=== PATIENT | female | born 1970 | race Caucasian/White ===

== ENCOUNTER 2020-08-30 08:48 | Outpatient (REF) | payer OTHER, SELFPAY ==
[2020-08-30 09:34] LABS: MANUAL DIFF FLAG NO
[2020-08-30 09:43] LABS: Basophils Absolute Auto 0.1 X10*3/uL (0.0-0.2); Basophils Percent Auto 1.1 % (0-2); Eosinophils Absolute Auto 0.1 X10*3/uL (0.0-0.4); Eosinophils Percent Auto 1.1 % (0-4); Hematocrit 44.7 % (37-47); Imm Gran Abs Auto 0.03 X10*3/uL (0.00-0.03); Imm Gran Pct Auto 0.3 % (0.0-0.4); Lymphocytes Absolute Auto 1.9 X10*3/uL (1.2-4.9); Lymphocytes Percent Auto 20.6 % (20-40); Mean Corpuscular HGB Conc 33.6 g/dl (31.0-35.0); Mean Corpuscular Hemoglobin 31.9 pg (27.0-33.0); Mean Corpuscular Volume 95.1 fL (80-98); Mean Platelet Volume 9.9 fL (9.4-12.3); Monocytes Absolute Auto 0.8 X10*3/uL (0.1-1.2); Monocytes Percent Auto 8.2 % (2-11); Neutrophils Absolute Auto 6.4 X10*3/uL (2.0-8.3); Neutrophils Percent Auto 68.7 % (45-73); Platelet Count 360 X10*3/uL (160-400); Red Cell Distribution Width 13.3 % (11.0-16.0); White Blood Count 9.4 X10*3/uL (4.8-10.8)
[2020-08-30 10:09] LABS: Alanine Aminotransferase 21 U/L (0-31); Albumin Level 4.3 g/dL (3.5-5.0); Alkaline Phosphatase 51 U/L (39-117); Anion Gap 11 (12-20); Aspartate Amino Transferase 21 U/L (5-31); Bilirubin Total 1.9 mg/dL (0.0-1.0); Blood Urea Nitrogen 16 mg/dL (9-16); Carbon Dioxide 27 mmol/L (22-29); Chloride 106 mmol/L (96-108); Cholesterol 184 mg/dL; Estimated Glomerular Filt Rate > 60; Gamma Glutamyl Transpeptidase 28 U/L (7-33); Glucose Fasting 96 mg/dL (60-99); HDL Cholesterol 72 mg/dL; LDL Cholesterol Calculated 103 mg/dl; Potassium 4.6 mmol/L (3.3-5.1); Sodium 139 mmol/L (135-145); Total Protein 6.9 g/dL (6.5-8.0); Triglycerides 46 mg/dL
[2020-08-30 10:29] LABS: TSH reflex Free T4 0.72 uIU/mL (0.32-4.0)
[2020-08-30 10:37] LABS: Glucose Urine UA NEG (NEG); Leukocyte Esterase Urine NEG (NEG); Nitrite Urine NEG (NEG); Urine Blood 3+ (NEG); Urine Ketones 5 MG/DL (NEG); Urine Protein NEG (NEG-TRACE)
[2020-08-30 10:41] LABS: Appearance Urine HAZY; Color Urine YELLOW
[2020-08-30 11:09] LABS: WBC Urine 0 /HPF (0-4)
[2020-08-30 11:10] LABS: Mucus Urine 2+ /LPF; Squamous Epithelial Cell Urine 1+ /LPF
== END 2020-08-30 08:49 | disposition home or self-care (01) ==
LOC: HO.LAB 08:48
PROVIDERS: PCP Internal Medicine; Visit Provider Internal Medicine
DX: Z00.00 Encounter for general adult medical examination without abnormal findings (principal); I47.1 Supraventricular tachycardia; E80.6 Other disorders of bilirubin metabolism; E66.3 Overweight; J45.20 Mild intermittent asthma, uncomplicated
CPT/HCPCS: 36415; 80053; 80061; 81001; 82977; 84443; 85025

== ENCOUNTER → 2021-01-21 15:16 | Outpatient (BNVA) | payer OTHER, SELFPAY | PROVIDERS: PCP Internal Medicine; Visit Provider Hospitalist ==

== ENCOUNTER 2021-04-07 08:39 | Outpatient (REF) | payer OTHER, SELFPAY ==
--- NOTE | ~2021-04-07 | US_ITS ---
EXAMINATION: US RETROPERITONEAL LIMITED (RENAL ONLY) CLINICAL INFORMATION: Cyst of kidney, acquired. COMPARISON: Renal ultrasound 12/31/2019 and 01/08/2019. MRI abdomen 06/02/2013. CT abdomen 04/18/2013. TECHNIQUE: Real-time imaging of the kidneys. FINDINGS: RIGHT KIDNEY: 10.8 x 4.7 x 5.5 cm (SAG x AP x TRV). The kidney is normal in size, contour, and echogenicity. Renal cortical thickness is normal. No focal parenchymal lesions. Previously seen simple cyst not appreciated on the current examination. Lower pole probable stone measuring 0.2 cm. Mild renal pelvic fullness, unchanged. No significant hydronephrosis. LEFT KIDNEY: 11.5 x 6.0 x 5.3 cm (SAG x AP x TRV). The kidney is normal in size, contour, and echogenicity. Renal cortical thickness is normal. No calculi or focal parenchymal lesions. No hydronephrosis. US/US renal BI IMPRESSION: 1. Previously CT seen right renal cyst not identified on the current examination. No new renal parenchymal lesion. 2. Probable right renal 0.2 cm lower pole stone. Mild pelvic fullness which is unchanged. No significant hydronephrosis.
== END 2021-04-07 08:40 | disposition home or self-care (01) ==
LOC: HO.HMGCX 08:39
PROVIDERS: PCP Internal Medicine; Visit Provider Urology
DX: N28.1 Cyst of kidney, acquired (principal)
CPT/HCPCS: 76775

== ENCOUNTER 2021-05-09 10:18 | Outpatient (REF) | payer OTHER, SELFPAY ==
[2021-05-09 11:07] LABS: COVID-19 Test Negative (Negative)
== END 2021-05-09 10:19 | disposition home or self-care (01) ==
LOC: HO.LAB 10:18
PROVIDERS: PCP Internal Medicine; Visit Provider Internal Medicine
DX: Z20.822 Contact with and (suspected) exposure to COVID-19 (principal)
CPT/HCPCS: 36415; 87635; C9803

== ENCOUNTER 2022-03-22 13:35 | Outpatient (REF) | payer OTHER, SELFPAY ==
[2022-03-22 13:59] LABS: MANUAL DIFF FLAG NO
[2022-03-22 14:23] LABS: Basophils Absolute Auto 0.1 X10*3/uL (0.0-0.2); Basophils Percent Auto 1.9 % (0-2); Eosinophils Absolute Auto 0.1 X10*3/uL (0.0-0.4); Eosinophils Percent Auto 1.5 % (0-4); Hematocrit 45.2 % (37.0-47.0); Hemoglobin 14.9 g/dl (12.0-16.0); Imm Gran Abs Auto 0.02 X10*3/uL (0.00-0.03); Imm Gran Pct Auto 0.3 % (0.0-0.4); Lymphocytes Absolute Auto 2.4 X10*3/uL (1.2-4.9); Lymphocytes Percent Auto 38.7 % (20-40); Mean Corpuscular Hemoglobin 31.2 pg (27.0-33.0); Mean Corpuscular Volume 94.8 fL (80.0-98.0); Mean Platelet Volume 9.8 fL (9.4-12.3); Monocytes Absolute Auto 0.6 X10*3/uL (0.1-1.2); Monocytes Percent Auto 9.8 % (2-11); Neutrophils Percent Auto 47.8 % (45-73); Platelet Count 371 X10*3/uL (160-400); Red Blood Count 4.77 X10*6/uL (4.20-5.50); Red Cell Distribution Width 13.2 % (11.0-16.0); White Blood Count 6.2 X10*3/uL (4.8-10.8)
[2022-03-22 14:30] LABS: Appearance Urine Clear; Color Urine Yellow; Glucose Urine UA Negative (Negative); Leukocyte Esterase Urine Trace (Negative); Nitrite Urine Negative (Negative); UMIC TRIGGER UACC YES; Urine Blood Trace (Negative); Urine Ketones Negative (Negative); Urine Protein Negative (Neg-Trace)
[2022-03-22 14:33] LABS: Bacteria Urine 1+ (None Seen); Hyaline Casts Urine 0-2 /LPF (0-2); WBC Urine 0-5 /HPF (0-5)
[2022-03-22 15:06] LABS: Anion Gap 15 (12-20); Blood Urea Nitrogen 11 mg/dL (9-16); Carbon Dioxide 27 mmol/L (22-29); Chloride 102 mmol/L (96-108); Estimated Glomerular Filt Rate > 60; Glucose Random 91 mg/dL (60-115); Magnesium 2.1 mg/dL (1.6-2.6); Potassium 4.1 mmol/L (3.3-5.1); Sodium 140 mmol/L (135-145)
[2022-03-22 15:17] LABS: Vitamin D 25-OH Total 26.8 ng/mL (>30)
[2022-03-24 08:27] LABS: Lyme Abs Screen <0.90 index
== END 2022-03-22 13:36 | disposition home or self-care (01) ==
LOC: HO.LAB 13:35
PROVIDERS: PCP Internal Medicine; Referring Provider Internal Medicine; Visit Provider Internal Medicine
DX: Z00.00 Encounter for general adult medical examination without abnormal findings (principal); T14.8XXA Other injury of unspecified body region, initial encounter; W57.XXXA Bitten or stung by nonvenomous insect and other nonvenomous arthropods, initial encounter; I49.1 Atrial premature depolarization; R00.2 Palpitations; E78.00 Pure hypercholesterolemia, unspecified; E55.9 Vitamin D deficiency, unspecified
CPT/HCPCS: 36415; 80048; 81001; 82306; 83735; 84443; 85025; 86617; 86618

== ENCOUNTER 2022-03-30 09:07 | Outpatient (REF) | payer OTHER, SELFPAY ==
[2022-03-30 11:21] LABS: Alanine Aminotransferase 24 U/L (0-31); Albumin Level 4.4 g/dL (3.5-5.0); Alkaline Phosphatase 56 U/L (39-117); Anion Gap 11 (12-20); Aspartate Amino Transferase 22 U/L (5-31); Bilirubin Total 1.5 mg/dL (0.0-1.0); Blood Urea Nitrogen 13 mg/dL (9-16); Calcium 9.9 mg/dL (8.4-10.2); Carbon Dioxide 29 mmol/L (22-29); Chloride 106 mmol/L (96-108); Cholesterol 190 mg/dL; Estimated Glomerular Filt Rate > 60; Glucose Fasting 99 mg/dL (60-99); HDL Cholesterol 72 mg/dL; LDL Cholesterol Calculated 110 mg/dl; Potassium 4.6 mmol/L (3.3-5.1); Sodium 141 mmol/L (135-145); Triglycerides 42 mg/dL
== END 2022-03-30 09:08 | disposition home or self-care (01) ==
LOC: HO.LAB 09:07
PROVIDERS: PCP Internal Medicine; Visit Provider Internal Medicine
DX: Z00.00 Encounter for general adult medical examination without abnormal findings (principal)
CPT/HCPCS: 36415; 80053; 80061

== ENCOUNTER 2022-05-12 09:30 | Outpatient (REF) | payer OTHER, SELFPAY ==
--- NOTE | ~2022-05-12 | US_ITS ---
EXAMINATION: US RETROPERITONEAL LIMITED (RENAL ONLY) CLINICAL INFORMATION: Urinary calculus, unspecified. COMPARISON: Renal ultrasound 04/07/2021 and 12/31/2019. MRI abdomen 06/02/2013. CT abdomen 04/18/2013. TECHNIQUE: Real-time imaging of the kidneys. FINDINGS: RIGHT KIDNEY: 10.5 x 4.3 x 6.5 cm (SAG x AP x TRV). The kidney is normal in size, contour, and echogenicity. Renal cortical thickness is normal. No renal calculi or hydronephrosis. At the interpolar aspect, a 6 x 4 x 7 mm of the complex cyst seen, with fine septation. This shows no mural nodularity or associated color Doppler flow. LEFT KIDNEY: 11.7 x 5.9 x 6.3 cm (SAG x AP x TRV). The kidney is normal in size, contour, and echogenicity. Renal cortical thickness is normal. No focal parenchymal lesions or hydronephrosis. At the interpolar aspect, a 3 mm nonobstructing calculus is seen, with twinkle artifact. US/US renal BI IMPRESSION: 1. A 3 mm nonobstructing left renal calculus is seen. No right renal calculus is seen. No hydronephrosis is noted bilaterally. 2. A 7 mm in maximal diameter mildly complex mid right renal cyst is seen, with solitary fine septation. This is minimally changed from the ultrasound examination of 12/31/2019, at which time it showed a simple appearance. If relevant to patient management, this can be further evaluated with CT or MRI (renal mass protocol).
== END 2022-05-12 09:31 | disposition home or self-care (01) ==
LOC: HO.US 09:30
DX: N20.9 Urinary calculus, unspecified (principal)
CPT/HCPCS: 76775

== ENCOUNTER 2023-04-16 09:00 | Outpatient (AMB) | payer OTHER, SELFPAY ==
[2023-04-16 09:09] VITALS: BP 112/80; PULSE 81; O2SAT 98; BMI 27.8
--- NOTE | 2023-04-16 09:09 | A.OFFPC_ITS ---
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: No Accompanied by: Self / Same As Patient Allergies No Known Allergies [No Known Allergies*] Allergy (Verified 04/16/23 09:22) Medication List - Last Reconciled 04/16/23 by Martinez Patiño MD No Known Home Meds Tobacco use date assessed: 04/16/23 Dental Screening Dental Screen Date: 04/16/23 Did you have a dental visit in the last 12 months?: Yes Did you have a dental problem in the last 6 months where you did not have access to dental care?: No Was dental information given to patient?: Patient has dentist HPI PE HPI Details Patient comes in today for her annual physical examination States that she feels okay She denies any headaches or dizziness Denies any chest pains, no SOB No nausea/vomiting, no abdominal pain No change in bowel habits noted Denies any acute urinary symptoms Had her screening colonoscopy done in 04/2019 - recommended to repeat colonoscopy in 5 years (04/2024) Her annual mammogram was last done last month at [facility] (02/2023) She has her records management analyst exam and pap smear scheduled for next month She was also seen by cardiology for follow up a few weeks ago - she continues to feel well and has been asymptomatic since her cardiac ablation for her SVTs back in 06/2021 Would like to get tested for Lyme disease again in addition to her other routine labs as she is out in the [facility] often She was not able to get her previously ordered labs (from last year) done yet - states that she will go and get them done as soon as possible Would also like to get her flu shot today [facility] Medical History (Updated 04/16/23 @ 09:48 by Martinez Patiño MD) Urolithiasis Hyperbilirubinemia Overweight (BMI 25.0-29.9) SVT (supraventricular tachycardia) Asthma Surgical History (Updated 04/16/23 @ 09:48 by Martinez Patiño MD) History of colonoscopy (~05/16/19) History of cardiac radiofrequency ablation (~06/2021) History of superficial keratectomy (~04/2017) 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 1. Little interest or pleasure in doing things: not at all 2. Feeling down, depressed, or hopeless: not at all 3. Trouble falling or staying asleep, or sleeping too much: not at all 4. Feeling tired or having little energy: not at all 5. Poor appetite or overeating: not at all 6. Feeling bad about yourself - or that you are a failure or have let yourself or your family down: not at all 7. Trouble concentrating on things, such as reading the newspaper or watching television: not at all 8. Moving or speaking so slowly that other people could have noticed. Or the opposite - being so fidgety or restless that you have been moving around a lot more than usual: not at all 9. Thoughts that you would be better off or of hurting yourself in some way: not at all Total score: 0 Depression Screening Interpretation: Negative Depression Screening Done: Yes 66502 - PHQ-9 Billing: Yes Source: Developed by Drs. Santosh Colunga, Kya Martínez, Dario Barrios and colleagues, with an educational alyssa from Interview. Thrive Questionnaire Date Thrive assessed: 04/16/23 I am a: Patient What is your living situation today?: I have a steady place to live Within the past 12 months, did the food you bought not last and you didn't have the money to get more?: Never true Within the past 12 months, did you worry whether your food would run out before you got money to buy more?: Never true Do you have trouble paying for medicines?: No Do you have trouble getting transportation to medical appointments?: No Do you have trouble paying your heating and electricity bill?: No Do you have trouble taking care of your child, family member or friend?: No Do you have trouble with day-to-day activities such as bathing, preparing meals, shopping, managing finances, etc.?: No Are you currently unemployed and looking for a job?: No Are you interested in more education?: No Please select the resources that you would like help with: None Currently or been in a relationship where the following occur: no concerns reported AUDIT C Alcohol Use Questionnaire (AUDIT-C) 1. How often do you have a drink containing alcohol?: 4 or more times a week 2. How many drinks containing alcohol do you have on a typical day when you are drinking?: 1 or 2 3. How often do you have six or more drinks on one occasion?: Never Total Score: 4 Score Reviewed/Action Taken: Yes DAVION-7 AMB Questionnaire DAVION-7 Date DAVION - 7 assessed: 04/16/23 Feeling nervous, anxious, or on edge: 0 = Not at all Not being able to stop or control worryin = Not at all Worrying too much about different things: 0 = Not at all Trouble relaxin = Not at all Being so restless that it is hard to sit still: 0 = Not at all Becoming easily annoyed or irritable: 0 = Not at all Feeling afraid as if something awful might happen: 0 = Not at all Total DAVION-7 score (0-4 normal; 5-9 mild; 10-14 moderate; 15-21 severe): 0 Source: Developed by Drs. Santosh Colunga, Kya Martínez, Dario Barrios and colleagues, with an educational alyssa from Interview. Review of Systems Const Denies chills, Denies fatigue, Denies fever(s), Denies headache(s) and Denies malaise Eyes Denies blurry vision, Denies change in vision, Denies irritation and Denies i tchy eyes ENT Denies dysphagia, Denies dizziness, Denies otalgia, Denies headache(s), Denies nasal congestion, Denies neck pain, Denies odynophagia, Denies sinus pain and Denies sore throat Card Denies chest pain, Denies rapid heart rate, Denies irregular heart rhythm, Denies palpitations and Denies dyspnea Resp Denies chest congestion, Denies cough, Denies dyspnea and Denies wheezing GI Denies abdominal pain, Denies bloating, Denies constipation, Denies dysphagia, Denies heartburn, Denies diarrhea, Denies nausea, Denies odynophagia and Denies vomiting Denies hematuria, Denies urinary frequency, Denies dysuria, Denies urinary incontinence and Denies urinary urgency Musc Denies back pain, Denies arthralgias, Denies joint swelling, Denies muscle weakness and Denies neck pain Skin/Breast Denies breast pain, Denies breast mass, Denies change in pigmentation, Denies lesions, Denies rash and Denies unusual bruising Neuro Denies dizziness, Denies headache(s) and Denies paresthesias Psych Denies anxiety and Denies depression Endo Denies fatigue and Denies palpitations Kyle/Lymph Denies easy bruising Aller/Immun Denies itchy eyes and Denies wheezing Physical exam (Primary Care) Vital Signs: Oxygen Delivery Method Room Air 04/16/23 09:09 BMI result Body Mass Index 27.8 Tobacco/Smoking Status: Tobacco use Status Tobacco use date assessed 04/16/23 04/16/23 09:15 Patient Tobacco Use Status Former Tobacco user 04/16/23 09:10 PHQ-9: PHQ-9 Score PHQ-9: Total score 0 04/16/23 09:15 Depression Screening Interpretation: Negative Thrive Assessment: Date of Thrive Assessment Date Thrive assessed 04/16/23 04/16/23 09:15 Currently or been in a relationship where the following occur: no concerns reported Const General: no acute distress, alert and awake Orientation/consciousness: patient oriented x3 HENMT Head: Yes normocephalic and Yes atraumatic Ears: external ears normal, TM's normal bilaterally and EAC's normal General nose exam: No nasal discharge present Face and sinus: Yes normal facial exam and Yes sinuses nontender Teeth and gingiva: dentition normal Throat: Yes posterior oropharynx normal and Yes tonsils normal (no TP congestion) Eyes Eyelids: Yes eyelids normal Conjunctivae: conjunctivae normal Pupils: Equal, round and reactive pupils present EOM: EOMs intact bilaterally Neck Neck: Yes no lymphadenopathy and Yes supple Thyroid: Thyroid normal Resp Auscultation: clear to auscultation bilaterally, no rales and no wheezes Cardio Rate: regular rate Rhythm: regular rhythm Heart sounds: no murmurs GI Palpation (GI): Soft to palpation, nontender and No hepatosplenomegaly present Auscultation: normal bowel sounds General: Yes no CVA tenderness Back/Spine/Pelvis Back: no CVA tenderness Thoracic/Lumbar Spine: thoracic and lumbar spine normal to inspection Skin Lesions: no lesions Rashes: no rashes Neuro General: patient oriented x3, moves all extremities, no focal motor deficits and CN's II-XI intact bilaterally Cranial nerves: Yes Equal, round and reactive pupils present Cognition (Neuro): normal cognition Gait exam (Neuro): Normal gait present Extrem General: Yes no clubbing, cyanosis or edema Office Procedures Flu Questionnaire Does the patient have a severe egg allergy?: No Does the patient have severe life threatening allergies?: No Does the patient have a fever or illness today?: No Has the patient ever had Guillain-[place] Syndrome?: No Has the patient ever had any past reaction to a flu shot?: No Immunizations flu vacc [id number] 6mos up(PF) 60 mcg(15 mcgx4)/0.5 mL IM syringe Performing Provider: Martinez Patiño MD Performing Location: [facility] Administered by: Rachel Andrade on 04/16/23 09:22 Dose Route Admin Location Dispensed Lot Number Expiration Date NDC Rat Exterminator 0.5 mL IM Left Deltoid 0.5 mL [id number] 12/23/23 [id number] Phraxis VIS Given Date VIS Provided VIS Publication Date 04/16/23 Single Vaccine 21 Eligibility Eligibility Date Funding Source Not [facility] Eligible 04/16/23 Private Assessment and Plan Assessment & Plan (1) Annual physical exam: Code(s): Z00.00 - Encounter for general adult medical examination without abnormal findings Plan: Patient is instructed to go and get her labs done CYDNEY - reminded that they were previously ordered last year and orders are still active in her file Per request, will add Lyme disease testing to her orders Patient is up-to-date with her screening colonoscopy and mammogram; is scheduled for her annual pap smear and records management analyst exam next month (2) SVT (supraventricular tachycardia): Code(s): I47.1 - Supraventricular tachycardia Plan: S/P EPS and catheter ablation last year on 07/08/2021 at [facility] by Dr. Lao, with no recurrence of her arrhythmia since She was still experiencing occasional brief episodes of rapid heart rate sometime last year, which cardiology thought may be due to PACs but since the pathway was ablated, they cannot progress to SVTs; states that she's had no cardiac symptoms at all this year Follow up with cardiology as scheduled (3) Hyperbilirubinemia: Comment: Gilbert's syndrome Code(s): E80.6 - Other disorders of bilirubin metabolism Plan: Serum bilirubin level has been consistently elevated on her labs; patient remains asymptomatic Most likely has Gilbert's syndrome, which is benign and no intervention is needed Will continue to monitor her bilirubin level and LFTs regularly (4) Asthma: Code(s): J45.909 - Unspecified asthma, uncomplicated Qualifiers: Asthma severity: mild Asthma persistence: intermittent Asthma complication type: uncomplicated Qualified Code(s): J45.20 - Mild intermittent asthma, uncomplicated Plan: Stable/asymptomatic Follow-up with pulmonary as scheduled or as needed (5) Overweight (BMI 25.0-29.9): Code(s): E66.3 - Overweight Plan: Reinforced diet/exercise as tolerated/lose weight Plan Flu vaccine given today To return in 1 year for her next annual physical examination Orders: Orders Influenza [id number] Immunization Today Z23 - Encounter for immunization Complete Blood Count Auto Diff 365 Days E80.6 - Other disorders of bilirubin metabolism, I47.1 - Supraventricular tachycardia, Z00.00 - Encounter for general adult medical examination without abnormal findings Lipid Panel 365 Days E78.5 - Hyperlipidemia, unspecified, E80.6 - Other disorders of bilirubin metabolism, I47.1 - Supraventricular tachycardia, Z00.00 - Encounter for general adult medical examination without abnormal findings TSH reflex Free T4 365 Days E80.6 - Other disorders of bilirubin metabolism, I47.1 - Supraventricular tachycardia, Z00.00 - Encounter for general adult medical examination without abnormal findings Vitamin D 25-OH Total 365 Days E55.9 - Vitamin D deficiency, unspecified, Z00.00 - Encounter for general adult medical examination without abnormal findings Lyme IgG/IgM w/reflex to WB Today W57.XXXA - Bitten or stung by nonvenomous insect and other nonvenomous arthropods, initial encounter Comprehensive [place]. Panel Fast 365 Days E80.6 - Other disorders of bilirubin metabolism, I47.1 - Supraventricular tachycardia, Z00.00 - Encounter for general adult medical examination without abnormal findings UA CC w/rflx Micro + Cult 365 Days I47.1 - Supraventricular tachycardia, R30.0 - Dysuria, Z00.00 - Encounter for general adult medical examination without abnormal findings Coding Level of Care Code Est Pt Prev Care 40-64y(29198) Diagnoses Annual physical exam Z00.00 SVT (supraventricular tachycardia) I47.1 Hyperbilirubinemia E80.6 Mild intermittent asthma without complication J45.20 Asthma severity: mild Asthma persistence: intermittent Asthma complication type: uncomplicated Overweight (BMI 25.0-29.9) E66.3
== END 2023-04-16 09:43 | disposition home or self-care (01) ==
PROVIDERS: Visit Provider Internal Medicine
DX: Z00.00 Encounter for general adult medical examination without abnormal findings (principal); I47.1 Supraventricular tachycardia; E80.6 Other disorders of bilirubin metabolism; J45.20 Mild intermittent asthma, uncomplicated; E66.3 Overweight; Z23 Encounter for immunization
CPT/HCPCS: 90471; 90686; 99396

== ENCOUNTER 2023-06-04 16:40 | Outpatient (REF) | payer OTHER, SELFPAY ==
--- NOTE | ~2023-06-04 | US_ITS ---
EXAMINATION: US RETROPERITONEAL LIMITED (RENAL ONLY) CLINICAL INFORMATION: Renal calculus, renal cysts. COMPARISON: 05/12/2022 and 04/07/2021 renal ultrasounds. MRI abdomen 06/12/2013. CT abdomen 04/18/2013. TECHNIQUE: Real-time ultrasound imaging of the kidneys. Limited visualization due to bowel gas. FINDINGS: RIGHT KIDNEY: 10.0 x 4.6 x 6.4 cm (SAG x AP x TRV). No hydronephrosis. Right lower pole 0.4 cm calculus. Renal cortical thickness is normal. Limited visualization. LEFT KIDNEY: 11.6 x 6.0 x 5.5 cm (SAG x AP x TRV). No hydronephrosis. No renal calculi. Renal cortical thickness is normal. Limited visualization. US/US renal BI IMPRESSION: 1. Right renal lower pole 0.4 cm calculus. No hydronephrosis. 2. No left renal calculi. No hydronephrosis. 3. The 7 mm right renal complex cyst identified on ultrasound of 05/16/2022 is not appreciated on the current exam, possibly due to limited visualization. 4. CT scan could be considered for better visualization.
== END 2023-06-04 16:41 | disposition home or self-care (01) ==
LOC: HO.US 16:40
PROVIDERS: PCP Internal Medicine; Visit Provider Urology
DX: N20.9 Urinary calculus, unspecified (principal)
CPT/HCPCS: 76775

== ENCOUNTER 2023-06-28 08:36 | Outpatient (AMB) | payer OTHER, SELFPAY ==
--- NOTE | 2023-06-28 08:38 | MHC.OFFVIS ---
Intake Intake Visit Reasons: 1Y US(set) Intake Note: Patient is Present for Follow Up Ultrasound Urology Medication: None Antibiotic Allergies: None Blood Thinners: None Allergies No Known Allergies [No Known Allergies*] Allergy (Verified 06/28/23 08:43) Medication List - Last Reconciled 06/28/23 by Guillermo Greene MD No Known Home Meds HPI HPI Comments History of Present Illness Details Nicole is a pleasant female. She is a patient Dr. Patiño. 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) H/O section Social History Housing: House Alcohol intake: current Alcohol intake frequency: 3 or more drinks per day Patient Tobacco Use Status: Former Tobacco user Second Hand Smoke Exposure: Yes service: No Current occupational status: employed 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 Cognitive needs: No Hearing needs: No Vision needs: Yes Review of Systems Const Denies chills and Denies fever(s) Card Reports no additional complaints and Denies syncope Resp Denies cough GI Denies abdominal pain and Denies heartburn Reports as per HPI and Denies change in libido Neuro Denies syncope Psych Denies change in libido Endo Denies change in libido Physical Exam Const General: cooperative, healthy appearing, comfortable and no acute distress Orientation/consciousness: patient oriented x3 HEENT Face and sinus: Yes normal facial exam Mouth: moist mucous membranes Neck Neck: Yes normal visual inspection, Yes full ROM and Yes trachea midline Chest Chest palpation & inspection: normal inspection of the chest Resp Effort & Inspection: normal respiratory effort, able to speak in complete sentences and no respiratory distress GI Inspection: Yes normal to inspection Back/Spine/Pelvis Cervical Spine: normal cervical lordosis Thoracic/Lumbar Spine: thoracic and lumbar spine normal to inspection Skin General skin exam: no rashes or lesions noted Neuro General: patient oriented x3, gait normal, tone normal and moves all extremities Extrem General: Yes normal to inspection and Yes capillary refill normal Assessment & Plan Assessment & Plan (1) Urolithiasis: Code(s): N20.9 - Urinary calculus, unspecified Plan One year follow-up Orders: Orders US renal BI 364 Days N20.9 - Urinary calculus, unspecified Patient Instructions: Imaging studies, laboratory and physical exam results were discussed and reviewed in detail. No major barriers to patient understanding were identified. An opportunity to ask questions regarding the treatment plan was provided. All questions were answered. The patient expressed understanding and agreement with the above treatment plan. The patient is aware they should contact our office by phone for worsening of their current condition or the appearance of new urologic symptoms. Compliance is encouraged with any medications and followup testing that is ordered. It is a privilege to participate in the urologic care of your patient. If you have any questions or concerns regarding treatment for the above conditions, or other urologic issues, please do not hesitate to contact me. The office telephone contact is [phone]. This note is constructed using voice recognition software. While every effort has been made to ensure accuracy supervisor wood crew errors may have been included. Yours sincerely, Dr Guillermo Greene MD, [facility] - Urology Providers of Expert, Compassionate Care for the Genitourinary System Coding Level of Care Code Est Pt Level 4 (35196) Diagnoses Urolithiasis N20.9
== END 2023-06-28 09:29 | disposition home or self-care (01) ==
PROVIDERS: PCP Internal Medicine; Visit Provider Urology
DX: N20.9 Urinary calculus, unspecified (principal)
CPT/HCPCS: 99213

== ENCOUNTER → 2023-06-28 08:36 | Outpatient (BNVA) | payer OTHER, SELFPAY | PROVIDERS: PCP Internal Medicine; Visit Provider Urology ==

== ENCOUNTER 2023-08-13 09:14 | Outpatient (REF) | payer OTHER, SELFPAY ==
[2023-08-13 09:30] LABS: MANUAL DIFF FLAG NO
[2023-08-13 10:17] LABS: Basophils Absolute Auto 0.1 X10*3/uL (0.0-0.2); Basophils Percent Auto 1.1 % (0-2); Eosinophils Absolute Auto 0.1 X10*3/uL (0.0-0.4); Eosinophils Percent Auto 1.2 % (0-4); Hematocrit 41.6 % (37.0-47.0); Hemoglobin 14.2 g/dl (12.0-16.0); Imm Gran Abs Auto 0.04 X10*3/uL (0.00-0.03); Imm Gran Pct Auto 0.4 % (0.0-0.4); Lymphocytes Absolute Auto 2.2 X10*3/uL (1.2-4.9); Lymphocytes Percent Auto 23.9 % (20-40); Mean Corpuscular HGB Conc 34.1 g/dl (31.0-35.0); Mean Corpuscular Hemoglobin 31.8 pg (27.0-33.0); Mean Corpuscular Volume 93.1 fL (80.0-98.0); Mean Platelet Volume 10.1 fL (9.4-12.3); Monocytes Absolute Auto 0.8 X10*3/uL (0.1-1.2); Monocytes Percent Auto 8.8 % (2-11); Neutrophils Absolute Auto 5.9 x10*3/uL (2.0-8.3); Neutrophils Percent Auto 64.6 % (45-73); Platelet Count 342 X10*3/uL (160-400); Red Blood Count 4.47 X10*6/uL (4.20-5.50); Red Cell Distribution Width 13.8 % (11.0-16.0); White Blood Count 9.1 X10*3/uL (4.8-10.8)
[2023-08-13 10:31] LABS: Appearance Urine Cloudy; Color Urine Yellow; Glucose Urine UA Negative (Negative); Leukocyte Esterase Urine Negative (Negative); Nitrite Urine Negative (Negative); PH 6.5 (5.0-9.0); Specific Gravity - Urine 1.025 (1.005-1.025); UMIC TRIGGER UACC YES; Urine Blood Small (1+) (Negative); Urine Ketones Trace mg/dL (Negative); Urine Protein Negative (Neg-Trace)
[2023-08-13 10:43] LABS: Bacteria Urine 4+ (None Seen); Hyaline Casts Urine 0-2 /LPF (0-2); WBC Urine 0-5 /HPF (0-5)
[2023-08-13 10:54] LABS: Alanine Aminotransferase 25 U/L (0-31); Alkaline Phosphatase 53 U/L (39-117); Anion Gap 11 (12-20); Aspartate Amino Transferase 22 U/L (5-31); Bilirubin Total 1.7 mg/dL (0.0-1.0); Blood Urea Nitrogen 15 mg/dL (9-16); Calcium 9.3 mg/dL (8.4-10.2); Carbon Dioxide 27 mmol/L (22-29); Chloride 106 mmol/L (96-108); Cholesterol 175 mg/dL (<200); Estimated Glomerular Filt Rate > 60; Glucose Fasting 94 mg/dL (60-99); HDL Cholesterol 75 mg/dL (>40); LDL Cholesterol Calculated 89 mg/dL (<100); Potassium 3.9 mmol/L (3.3-5.1); Sodium 140 mmol/L (135-145); Total Protein 6.6 g/dL (6.5-8.0); Triglycerides 56 mg/dL (<150)
[2023-08-13 11:12] LABS: Vitamin D 25-OH Total 18.2 ng/mL (>30)
[2023-08-14 06:28] LABS: Lyme Abs Screen <0.90 index
== END 2023-08-13 09:15 | disposition home or self-care (01) ==
LOC: HO.LAB 09:14
PROVIDERS: PCP Internal Medicine; Visit Provider Internal Medicine
DX: T14.8XXA Other injury of unspecified body region, initial encounter (principal); W57.XXXA Bitten or stung by nonvenomous insect and other nonvenomous arthropods, initial encounter; Z00.00 Encounter for general adult medical examination without abnormal findings; E78.00 Pure hypercholesterolemia, unspecified; E80.6 Other disorders of bilirubin metabolism; E55.9 Vitamin D deficiency, unspecified; I47.10 Supraventricular tachycardia, unspecified
CPT/HCPCS: 36415; 80053; 80061; 81001; 82306; 84443; 85025; 86617; 86618

== ENCOUNTER 2024-02-08 12:04 | Outpatient (REF) | payer OTHER, SELFPAY ==
[2024-02-08 13:06] LABS: Appearance Urine Cloudy; Color Urine Yellow; Glucose Urine UA Negative (Negative); Leukocyte Esterase Urine Large (3+) (Negative); Nitrite Urine Positive (Negative); PH 5.5 (5.0-9.0); UMIC TRIGGER UACC YES; Urine Blood Large (3+) (Negative); Urine Ketones Negative (Negative); Urine Protein 30 (1+) mg/dL (Neg-Trace)
[2024-02-08 13:17] LABS: Bacteria Urine 4+ (None Seen); UACC Culture Trigger YES; WBC Urine >50 /HPF (0-5)
== END 2024-02-08 12:05 | disposition home or self-care (01) ==
LOC: HO.LAB 12:04
PROVIDERS: PCP Internal Medicine; Visit Provider Internal Medicine
DX: R39.9 Unspecified symptoms and signs involving the genitourinary system (principal)
CPT/HCPCS: 81001; 81003; 87086; 87088; 87186

== ENCOUNTER 2024-03-04 12:44 | Outpatient (AMB) | payer OTHER, SELFPAY ==
[2024-03-04 12:45] VITALS: BP 118/80; PULSE 73; O2SAT 99; BMI 28.4
--- NOTE | 2024-03-04 12:45 | A.OFFPC_ITS ---
Vital Signs 03/04/24 12:45 Height 5 ft 7 in Weight 181 lb 6 oz BMI 28.4 BP 118/80 Blood Pressure Location Lt brachial Position Sitting Pulse 73 Pulse Source Pulse Oximeter Pulse Oximetry (%) 99 Oxygen Delivery Method Room Air Intake Visit Reasons: lump on thyroid Hl7 Interface Developer Required: No Accompanied by: Self / Same As Patient Allergies No Known Allergies [No Known Allergies*] Allergy (Verified 03/09/24 20:23) Medication List - Last Reconciled 03/09/24 by Martinez Patiño MD No Known Home Meds Tobacco use date assessed: 03/04/24 Dental Screening Dental Screen Date: 03/04/24 Did you have a dental visit in the last 12 months?: Yes Did you have a dental problem in the last 6 months where you did not have access to dental care?: No Was dental information given to patient?: Patient has dentist HPI lump on thyroid HPI Details Patient comes in today for evaluation of a lump on her throat anteriorly that she first noticed a couple of days ago States that she does have some family members who have some thyroid issues and she is concerned that this lump on her throat could be due to some thyroid problems She denies any neck pains or sore throat; denies any trouble swallowing or drinking Denies any fever, headaches or dizziness She denies any chest pains, no SOB No nausea/vomiting, no abdominal pain No change in bowel habits noted [facility] Medical History Urolithiasis Hyperbilirubinemia Overweight (BMI 25.0-29.9) SVT (supraventricular tachycardia) Asthma Surgical History History of colonoscopy (~05/16/19) History of cardiac radiofrequency ablation (~06/2021) History of superficial keratectomy (~04/2017) 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 1. Little interest or pleasure in doing things: not at all 2. Feeling down, depressed, or hopeless: not at all 3. Trouble falling or staying asleep, or sleeping too much: not at all 4. Feeling tired or having little energy: not at all 5. Poor appetite or overeating: not at all 6. Feeling bad about yourself - or that you are a failure or have let yourself or your family down: not at all 7. Trouble concentrating on things, such as reading the newspaper or watching television: not at all 8. Moving or speaking so slowly that other people could have noticed. Or the opposite - being so fidgety or restless that you have been moving around a lot more than usual: not at all 9. Thoughts that you would be better off or of hurting yourself in some way: not at all Total score: 0 Depression Screening Interpretation: Negative Depression Screening Done: Yes 64599 - PHQ-9 Billing: Yes Source: Developed by Drs. Santosh Colunga, Kya Martínez, Dario Barrios and colleagues, with an educational alyssa from [employer]. Thrive Questionnaire Date Thrive assessed: 03/04/24 I am a: Patient What is your living situation today?: I have a steady place to live Within the past 12 months, did the food you bought not last and you didn't have the money to get more?: Never true Within the past 12 months, did you worry whether your food would run out before you got money to buy more?: Never true Do you have trouble paying for medicines?: No Do you have trouble getting transportation to medical appointments?: No Do you have trouble paying your heating and electricity bill?: No Do you have trouble taking care of your child, family member or friend?: No Do you have trouble with day-to-day activities such as bathing, preparing meals, shopping, managing finances, etc.?: No Are you currently unemployed and looking for a job?: No Are you interested in more education?: No Please select the resources that you would like help with: None Currently or been in a relationship where the following occur: No concerns reported THRIVE Score: 0 AUDIT C Alcohol Use Questionnaire (AUDIT-C) 1. How often do you have a drink containing alcohol?: 4 or more times a week 2. How many drinks containing alcohol do you have on a typical day when you are drinking?: 1 or 2 3. How often do you have six or more drinks on one occasion?: Never Total Score: 4 Score Reviewed/Action Taken: Yes DAVION-7 AMB Questionnaire DAVION-7 Date DAVION - 7 assessed: 03/04/24 Feeling nervous, anxious, or on edge: 0 = Not at all Not being able to stop or control worryin = Not at all Worrying too much about different things: 0 = Not at all Trouble relaxin = Not at all Being so restless that it is hard to sit still: 0 = Not at all Becoming easily annoyed or irritable: 0 = Not at all Feeling afraid as if something awful might happen: 0 = Not at all Total DAVION-7 score (0-4 normal; 5-9 mild; 10-14 moderate; 15-21 severe): 0 Source: Developed by Drs. Santosh Colunga, Kya Martínez, Dario Barrios and colleagues, with an educational alyssa from [employer]. Review of Systems Const Denies chills, Denies fatigue, Denies fever(s) and Denies headache(s) ENT Details: (+) lump on the lower throat anteriorly Denies dysphagia, Denies dizziness, Denies otalgia, Denies headache(s), Denies neck pain, Denies odynophagia and Denies sore throat Card Denies chest pain, Denies irregular heart rhythm, Denies palpitations and Denies dyspnea Resp Denies chest congestion, Denies cough and Denies dyspnea GI Denies abdominal pain, Denies constipation, Denies dysphagia, Denies heartburn, Denies diarrhea, Denies nausea, Denies odynophagia and Denies vomiting Denies urinary frequency, Denies dysuria and Denies urinary urgency Musc Denies back pain, Denies arthralgias and Denies neck pain Skin/Breast Denies rash Neuro Denies dizziness, Denies headache(s) and Denies paresthesias Psych Denies anxiety and Denies depression Endo Denies fatigue and Denies palpitations Ykle/Lymph Denies easy bruising Physical exam (Primary Care) Vital Signs: Last Vital Signs Pulse 73 03/04/24 12:45 BP 118/80 03/04/24 12:45 Pulse Ox 99 03/04/24 12:45 Oxygen Delivery Method Room Air 03/04/24 12:45 BMI result Body Mass Index 28.4 Tobacco/Smoking Status: Tobacco use Status Tobacco use date assessed 03/04/24 03/04/24 12:47 Patient Tobacco Use Status Former Tobacco user 03/04/24 12:47 e-Cigarette/Vaping Use Never Used 03/04/24 12:47 PHQ-9: PHQ-9 Score PHQ-9: Total score 0 03/04/24 13:25 Depression Screening Interpretation: Negative Thrive Assessment: Date of Thrive Assessment Date Thrive assessed 03/04/24 03/04/24 12:47 Currently or been in a relationship where the following occur: No concerns reported Const General: no acute distress and alert HENMT Throat: Yes posterior oropharynx normal and Yes tonsils normal (no TP congestion) Neck Other: (+) small, non-tender cystic lesion on the lower neck anteriorly - lesion is just above the jugular notch Neck: Yes no lymphadenopathy and Yes supple Thyroid: Thyroid normal Resp Auscultation: clear to auscultation bilaterally, no rales and no wheezes Cardio Rate: regular rate Rhythm: regular rhythm Heart sounds: no murmurs GI Palpation (GI): Soft to palpation and nontender Auscultation: normal bowel sounds General: Yes no CVA tenderness Back/Spine/Pelvis Back: no CVA tenderness Skin Rashes: no rashes Extrem General: Yes no clubbing, cyanosis or edema Assessment and Plan Assessment & Plan (1) Nodule of neck: Code(s): R22.1 - Localized swelling, mass and lump, neck Plan: Have advised patient that the nodular / cystic lesion on the anterior aspect of her lower neck may not necessarily be from the thyroid and it could also represent a possible thyroglossal duct cyst or less likely, some form of diverticulum Will send her for thyroid US for now for further evaluation and if the sonogram shows that it is not from the thyroid, will then look into this further Plan To return as scheduled next month for her annual physical examination Orders: Orders US thyroid 03/04/24 E04.1 - Nontoxic single thyroid nodule Coding Level of Care Code Est Pt Level 3 (23117) Diagnoses Nodule of neck R22.1
== END 2024-03-04 13:26 | disposition home or self-care (01) ==
PROVIDERS: PCP Internal Medicine; Visit Provider Internal Medicine
DX: R22.1 Localized swelling, mass and lump, neck (principal)
CPT/HCPCS: 99213

== ENCOUNTER 2024-03-13 08:58 | Outpatient (REF) | payer OTHER, SELFPAY ==
--- NOTE | ~2024-03-13 | US_ITS ---
EXAMINATION: US THYROID CLINICAL INFORMATION: Nontoxic single thyroid nodule. COMPARISON: None available. TECHNIQUE: Linear transducer grayscale and color Doppler examination with attention to the region of the thyroid. FINDINGS: SIZE: Measurements of the thyroid lobes and nodules are given in sagittal, anteroposterior and transverse dimensions respectively. Right Thyroid Lobe: 5.2 x 1.5 x 2.1 cm, volume 8.9 mL. Parenchyma: The gland echotexture is homogeneous. Thyroid vascularity is normal. Left Thyroid Lobe: 5.3 x 1.4 x 1.2 cm, volume 4.5 mL. Parenchyma: The gland echotexture is homogeneous. Thyroid vascularity is normal. Isthmus: 0.4 cm in maximum AP dimension. Estimated total number of nodules greater than or equal to 1 cm: 5. 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 Location: Isthmus. Size: 1.2 x 0.7 x 1.1 cm, volume 0.5 mL. Nodule characteristics: Composition: Solid/almost completely solid (2). Echogenicity: Isoechoic (1). Shape: Not taller than wide (0). Margins: Smooth (0). Echogenic Foci: None (0). ACR TI-RADS total points: 3 ACR TI-RADS category: 3 2. Location: Isthmus. Size: 0.7 x 0.5 x 0.8 cm, volume 0.153 mL. Nodule characteristics: Composition: Solid/almost completely solid (2). Echogenicity: Isoechoic (1). Shape: Not taller than wide (0). Margins: Ill-defined (0). Echogenic Foci: None (0). ACR TI-RADS total points: 3 ACR TI-RADS category: 3 3. Location: Right upper. Size: 1.2 x 1.0 x 0.9 cm, volume 0.6 mL. Nodule characteristics: Composition: Spongiform (0). ACR TI-RADS total points: 0 ACR TI-RADS category: 1 4. Location: Right mid. Size: 1.0 x 0.5 x 0.9 cm, volume 0.24 mL. Nodule characteristics: Composition: Mixed cystic and solid (1). Echogenicity: Cannot be determined (1). Shape: Not taller than wide (0). Margins: Smooth (0). Echogenic Foci: None (0). ACR TI-RADS total points: 2 ACR TI-RADS category: 2 5. Location: Right lower. Size: 1.0 x 0.9 x 1.3 cm, volume 0.60 mL. Nodule characteristics: Composition: Mixed cystic and solid (1). Echogenicity: Isoechoic (1). Shape: Not taller than wide (0). Margins: Smooth (0). Echogenic Foci: None (0). ACR TI-RADS total points: 2 ACR TI-RADS category: 2 6. Location: Right lower. Size: 1.0 x 1.0 x 1.0 cm, volume 1.0 mL. Nodule characteristics: Composition: Solid (2). Echogenicity: Isoechoic (1). Shape: Not taller than wide (0). Margins: Smooth (0). Echogenic Foci: None (0). ACR TI-RADS total points: 3 ACR TI-RADS category: 3 NODES: No lymphadenopathy is seen in the tissue surrounding the thyroid gland. US/US thyroid IMPRESSION: Multiple thyroid nodules as above measuring up to 1.2 cm TR 3. No imaging follow-up is recommended as per ACR guidelines. Follow-up as clinically indicated. ACR TI-RADS RECOMMENDATION REFERENCE: Ultrasound-guided fine-needle aspiration, followup ultrasound, no further follow up. * TR1 (0 point) and TR2 (2 points): No FNA or follow up. * TR3 (3 points): FNA if more than or equal to 2.5 cm in maximum dimension, followup ultrasound in 1, 3 and 5 years if 1.5 to 2.4 cm in maximum dimension. * TR4 (4-6 points): FNA if more than or equal to 1.5 cm in maximum dimension, followup ultrasound in 1, 2, 3 and 5 years if 1 to 1.4 cm in maximum dimension. * TR5 (more than or equal to 7 points): FNA if more than or equal to 1 cm in maximum dimension, followup ultrasound every year for 5 years if 0.5 to 0.9 cm in maximum dimension. * TR3, TR4 or TR5 nodules that are below the size threshold for followup receive no follow up. Electronically signed by: Amador De Guzman MD 03/17/2024 02:20 PM EDT
== END 2024-03-13 08:59 | disposition home or self-care (01) ==
LOC: HO.US 08:58
PROVIDERS: PCP Internal Medicine; Visit Provider Internal Medicine
DX: E04.1 Nontoxic single thyroid nodule (principal)
CPT/HCPCS: 76536

== ENCOUNTER 2024-04-02 09:27 | Outpatient (REF) | payer OTHER, SELFPAY ==
[2024-04-02 09:52] LABS: MANUAL DIFF FLAG NO
[2024-04-02 10:09] LABS: Basophils Absolute Auto 0.1 X10*3/uL (0.0-0.2); Basophils Percent Auto 0.9 % (0-2); Eosinophils Absolute Auto 0.1 X10*3/uL (0.0-0.4); Eosinophils Percent Auto 0.7 % (0-4); Hematocrit 46.1 % (37.0-47.0); Hemoglobin 15.6 g/dl (12.0-16.0); Imm Gran Abs Auto 0.05 X10*3/uL (0.00-0.03); Imm Gran Pct Auto 0.5 % (0.0-0.4); Lymphocytes Absolute Auto 2.1 X10*3/uL (1.2-4.9); Mean Corpuscular HGB Conc 33.8 g/dl (31.0-35.0); Mean Corpuscular Hemoglobin 32.4 pg (27.0-33.0); Mean Corpuscular Volume 95.6 fL (80.0-98.0); Mean Platelet Volume 9.6 fL (9.4-12.3); Monocytes Absolute Auto 0.7 X10*3/uL (0.1-1.2); Monocytes Percent Auto 7.5 % (2-11); Neutrophils Absolute Auto 6.9 x10*3/uL (2.0-8.3); Neutrophils Percent Auto 69.4 % (45-73); Platelet Count 352 X10*3/uL (160-400); Red Blood Count 4.82 X10*6/uL (4.20-5.50); Red Cell Distribution Width 13.3 % (11.0-16.0); White Blood Count 9.9 X10*3/uL (4.8-10.8)
[2024-04-02 10:24] LABS: Appearance Urine Cloudy; Color Urine Dark Yellow; Glucose Urine UA Negative (Negative); Leukocyte Esterase Urine Negative (Negative); Nitrite Urine Negative (Negative); Specific Gravity - Urine >= 1.030 (1.005-1.025); UMIC TRIGGER UACC YES; Urine Blood Moderate (2+) (Negative); Urine Ketones Trace mg/dL (Negative); Urine Protein Trace mg/dL (Neg-Trace)
[2024-04-02 10:33] LABS: Bacteria Urine 2+ (None Seen); Hyaline Casts Urine 0-2 /LPF (0-2); Squamous Epithelial Cell Urine >20 /HPF (0-2); WBC Urine 0-5 /HPF (0-5)
[2024-04-02 10:35] LABS: Alanine Aminotransferase 22 U/L (0-31); Albumin Level 4.5 g/dL (3.5-5.0); Alkaline Phosphatase 56 U/L (39-117); Anion Gap 11 (12-20); Aspartate Amino Transferase 18 U/L (5-31); Bilirubin Total 2.8 mg/dL (0.0-1.0); Blood Urea Nitrogen 12 mg/dL (9-16); Calcium 9.8 mg/dL (8.4-10.2); Carbon Dioxide 28 mmol/L (22-29); Chloride 107 mmol/L (96-108); Cholesterol 209 mg/dL (<200); Estimated Glomerular Filt Rate > 60; Glucose Fasting 110 mg/dL (60-99); HDL Cholesterol 83 mg/dL (>40); LDL Cholesterol Calculated 113 mg/dL (<100); Potassium 4.3 mmol/L (3.3-5.1); Sodium 142 mmol/L (135-145); Total Protein 7.4 g/dL (6.5-8.0); Triglycerides 68 mg/dL (<150)
[2024-04-02 10:53] LABS: Vitamin D 25-OH Total 28.4 ng/mL (>30)
== END 2024-04-02 09:28 | disposition home or self-care (01) ==
LOC: HO.LAB 09:27
PROVIDERS: PCP Internal Medicine; Visit Provider Internal Medicine
DX: E78.00 Pure hypercholesterolemia, unspecified (principal); Z00.00 Encounter for general adult medical examination without abnormal findings; E55.9 Vitamin D deficiency, unspecified; E80.6 Other disorders of bilirubin metabolism; E78.5 Hyperlipidemia, unspecified; D64.9 Anemia, unspecified; I47.10 Supraventricular tachycardia, unspecified
CPT/HCPCS: 36415; 80053; 80061; 81001; 81003; 82306; 84443; 85025

== ENCOUNTER 2024-04-17 09:06 | Outpatient (AMB) | payer OTHER, SELFPAY ==
[2024-04-17 09:07] VITALS: BP 110/76; PULSE 85; O2SAT 97; BMI 28.4
--- NOTE | 2024-04-17 09:07 | MHC.PC.OV ---
Vital Signs 04/17/24 09:07 Height 5 ft 7 in Weight 181 lb 2 oz BMI 28.4 BP 110/76 Blood Pressure Location Lt brachial Position Sitting Pulse 85 Pulse Source Pulse Oximeter Pulse Oximetry (%) 97 Oxygen Delivery Method Room Air Intake Visit Reasons: pe Wirer Maintenance Required: No Accompanied by: Self / Same As Patient Allergies No Known Allergies [No Known Allergies*] Allergy (Verified 04/17/24 09:21) Medication List - Last Reconciled 04/17/24 by Martinez Patiño MD No Known Home Meds Tobacco use date assessed: 04/17/24 Dental Screening Dental Screen Date: 04/17/24 Did you have a dental visit in the last 12 months?: Yes Did you have a dental problem in the last 6 months where you did not have access to dental care?: No Was dental information given to patient?: Patient has dentist HPI pe HPI Details Patient comes in today for her annual physical examination States that she feels okay She denies any headaches or dizziness Denies any chest pains, no SOB No nausea/vomiting, no abdominal pain No change in bowel habits noted Denies any acute urinary symptoms States that she is scheduled to see ENT in [place] in early May 2024 for the cyst on her anterior throat (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 Tapia and is due now for repeat colonoscopy (5 year recall) States that she is up-to-date with her annual gynecology exam and pap smear (goes to [facility]) and is scheduled for her annual mammogram in a couple of months (also at [facility]) She would like to get her flu shot today as well [facility] Medical History (Updated 04/17/24 @ 10:03 by Martinez Patiño MD) Vitamin D deficiency Urolithiasis Hyperbilirubinemia Overweight (BMI 25.0-29.9) SVT (supraventricular tachycardia) Asthma Surgical History History of colonoscopy (~05/16/19) History of cardiac radiofrequency ablation (~06/2021) History of superficial keratectomy (~04/2017) History of splenectomy (~11/2013) History of pancreatectomy (~11/2013) H/O section Social History Housing: House Alcohol intake: current Alcohol intake frequency: 3 or more drinks per day Patient Tobacco Use Status: Former Tobacco user e-Cigarette/Vaping Use: Never Used Second Hand Smoke Exposure: Yes service: No Current occupational status: employed 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 1. Little interest or pleasure in doing things: not at all 2. Feeling down, depressed, or hopeless: not at all 3. Trouble falling or staying asleep, or sleeping too much: not at all 4. Feeling tired or having little energy: not at all 5. Poor appetite or overeating: not at all 6. Feeling bad about yourself - or that you are a failure or have let yourself or your family down: not at all 7. Trouble concentrating on things, such as reading the newspaper or watching television: not at all 8. Moving or speaking so slowly that other people could have noticed. Or the opposite - being so fidgety or restless that you have been moving around a lot more than usual: not at all 9. Thoughts that you would be better off or of hurting yourself in some way: not at all Total score: 0 Depression Screening Interpretation: Negative Depression Screening Done: Yes 23693 - PHQ-9 Billing: Yes Source: Developed by Drs. Santosh Colunga, Kya Martínez, Dario Barrios and colleagues, with an educational alyssa from [employer]. Thrive Questionnaire Date Thrive assessed: 04/17/24 I am a: Patient What is your living situation today?: I have a steady place to live Within the past 12 months, did the food you bought not last and you didn't have the money to get more?: Never true Within the past 12 months, did you worry whether your food would run out before you got money to buy more?: Never true Do you have trouble paying for medicines?: No Do you have trouble getting transportation to medical appointments?: No Do you have trouble paying your heating and electricity bill?: No Do you have trouble taking care of your child, family member or friend?: No Do you have trouble with day-to-day activities such as bathing, preparing meals, shopping, managing finances, etc.?: No Are you currently unemployed and looking for a job?: No Are you interested in more education?: No Please select the resources that you would like help with: None Currently or been in a relationship where the following occur: No concerns reported THRIVE Score: 0 AUDIT C Alcohol Use Questionnaire (AUDIT-C) 1. How often do you have a drink containing alcohol?: 4 or more times a week 2. How many drinks containing alcohol do you have on a typical day when you are drinking?: 1 or 2 3. How often do you have six or more drinks on one occasion?: Never Total Score: 4 Score Reviewed/Action Taken: Yes DAVION-7 AMB Questionnaire DAVION-7 Date DAVION - 7 assessed: 04/17/24 Feeling nervous, anxious, or on edge: 0 = Not at all Not being able to stop or control worryin = Not at all Worrying too much about different things: 0 = Not at all Trouble relaxin = Not at all Being so restless that it is hard to sit still: 0 = Not at all Becoming easily annoyed or irritable: 0 = Not at all Feeling afraid as if something awful might happen: 0 = Not at all Total DAVION-7 score (0-4 normal; 5-9 mild; 10-14 moderate; 15-21 severe): 0 Source: Developed by Drs. Santosh Colunga, Kya Martínez, Dario Barrios and colleagues, with an educational alyssa from [employer]. Review of Systems Const Denies chills, Reports difficulty sleeping (at times), Denies fatigue, Denies fever(s), Denies headache(s) and Denies malaise Eyes Denies blurry vision, Denies change in vision, Denies irritation and Denies itchy eyes ENT Denies dysphagia, Denies dizziness, Denies otalgia, Denies headache(s), Denies nasal congestion, Denies neck pain, Denies odynophagia, Denies sinus pain and Denies sore throat Card Denies chest pain, Denies rapid heart rate, Denies irregular heart rhythm, Denies palpitations and Denies dyspnea Resp Denies chest congestion, Denies cough, Denies dyspnea and Denies wheezing GI Denies abdominal pain, Denies bloating, Denies constipation, Denies dysphagia, Denies heartburn, Denies diarrhea, Denies nausea, Denies odynophagia and Denies vomiting Denies hematuria, Denies urinary frequency, Denies dysuria, Denies urinary incontinence and Denies urinary urgency Musc Denies back pain, Denies arthralgias, Denies joint swelling, Denies muscle weakness and Denies neck pain Skin/Breast Denies breast pain, Denies breast mass, Denies change in pigmentation, Denies lesions, Denies rash and Denies unusual bruising Neuro Denies dizziness, Denies headache(s) and Denies paresthesias Psych Reports anxiety (on and off lately) and Denies depression Endo Denies fatigue and Denies palpitations Kyle/Lymph Denies easy bruising Aller/Immun Denies itchy eyes and Denies wheezing Physical exam (Primary Care) Vital Signs: Last Vital Signs Pulse 85 04/17/24 09:07 BP 110/76 04/17/24 09:07 Pulse Ox 97 04/17/24 09:07 Oxygen Delivery Method Room Air 04/17/24 09:07 BMI result Body Mass Index 28.4 Tobacco/Smoking Status: Tobacco use Status Tobacco use date assessed 04/17/24 04/17/24 09:11 Patient Tobacco Use Status Former Tobacco user 04/17/24 09:11 e-Cigarette/Vaping Use Never Used 04/17/24 09:11 PHQ-9: PHQ-9 Score PHQ-9: Total score 0 04/17/24 09:23 Depression Screening Interpretation: Negative Thrive Assessment: Date of Thrive Assessment Date Thrive assessed 04/17/24 04/17/24 09:11 Currently or been in a relationship where the following occur: No concerns reported Const General: no acute distress, alert and awake Orientation/consciousness: patient oriented x3 HENMT Head: Yes normocephalic and Yes atraumatic Ears: external ears normal, TM's normal bilaterally and EAC's normal General nose exam: No nasal discharge present Face and sinus: Yes normal facial exam and Yes sinuses nontender Teeth and gingiva: dentition normal Throat: Yes posterior oropharynx normal and Yes tonsils normal (no TP congestion) Eyes Eyelids: Yes eyelids normal Conjunctivae: conjunctivae normal Pupils: Equal, round and reactive pupils present EOM: EOMs intact bilaterally Neck Other: (+) small, non-tender cystic lesion on the lower neck anteriorly - lesion is just above the jugular notch Neck: Yes no lymphadenopathy and Yes supple Thyroid: Thyroid normal Resp Auscultation: clear to auscultation bilaterally, no rales and no wheezes Cardio Rate: regular rate Rhythm: regular rhythm Heart sounds: no murmurs GI Palpation (GI): Soft to palpation, nontender and No hepatosplenomegaly present Auscultation: normal bowel sounds General: Yes no CVA tenderness Back/Spine/Pelvis Back: no CVA tenderness Thoracic/Lumbar Spine: thoracic and lumbar spine normal to inspection Skin Lesions: no lesions Rashes: no rashes Neuro General: patient oriented x3, moves all extremities, no focal motor deficits and CN's II-XI intact bilaterally Cranial nerves: Yes Equal, round and reactive pupils present Cognition (Neuro): normal cognition Gait exam (Neuro): Normal gait present Extrem General: Yes no clubbing, cyanosis or edema Office Procedures Flu Questionnaire Does the patient have a severe egg allergy?: No Does the patient have severe life threatening allergies?: No Does the patient have a fever or illness today?: No Has the patient ever had Guillain-[place] Syndrome?: No Has the patient ever had any past reaction to a flu shot?: No Immunizations Fluarix Triv [id number] (PF) 45 mcg (15 mcg x 3)/0.5 mL IM syringe Performing Provider: Martinez Patiño MD [facility] Administered by: Jennifer Ochoa LPN on 04/17/24 10:03 Dose Route Admin Location Dispensed Lot Number Expiration Date NDC Drafter Seismograph 0.5 mL IM Right Deltoid 0.5 mL [id number] 12/22/24 [id number] [employer] VIS Given Date VIS Provided VIS Publication Date 04/17/24 Single Vaccine 21 Eligibility Eligibility Date Funding Source Not [facility] Eligible 04/17/24 Private Results Reviewed Results Reviewed: Laboratory Tests 04/02/24 04/02/24 09:49 09:50 WBC 9.9 Hgb 15.6 Hct 46.1 Plt Count 352 Sodium 142 Potassium 4.3 Creatinine 0.75 Estimated GFR > 60 Fasting Glucose 110 H Calcium 9.8 Total Bilirubin 2.8 H AST 18 ALT 22 Alkaline Phosphatase 56 Triglycerides 68 Cholesterol 209 H LDL Cholesterol, Calc 113 H HDL Cholesterol 83 25-OH Vitamin D Total 28.4 L TSH 0.80 Ur Specific [place] >= 1.030 H Urine Protein Trace Urine Glucose (UA) Negative Urine Blood Moderate (2+) H Urine Nitrite Negative Ur Leukocyte Esterase Negative Coding Level of Care Code Est Pt Prev Care 40-64y(62563) Diagnoses Annual physical exam Z00.00 SVT (supraventricular tachycardia) I47.1 Hyperbilirubinemia E80.6 Mild intermittent asthma without complication J45.20 Asthma severity: mild Asthma persistence: intermittent Asthma complication type: uncomplicated Nodule of neck R22.1 Vitamin D deficiency E55.9 Anxiety F41.9 Overweight (BMI 25.0-29.9) E66.3 Assessment & Plan Assessment & Plan (1) Annual physical exam: Code(s): Z00.00 - Encounter for general adult medical examination without abnormal findings Category: Medical Plan: Results of her labs done a couple of weeks ago reviewed and discussed with patient She had her colonoscopy last done in [address] Tapia and is due now for repeat colonoscopy (5 year recall) States that she is up-to-date with her annual gynecology exam and pap smear (goes to [facility]) and is scheduled for her annual mammogram in a couple of months (also at [facility]) (2) SVT (supraventricular tachycardia): Code(s): I47.1 - Supraventricular tachycardia Category: Medical Plan: S/P EPS and catheter ablation on 07/08/2021 at [facility] by Dr. Lao, with no recurrence of her arrhythmia since She was still experiencing occasional brief episodes of rapid heart rate sometime last year, which cardiology thought may be due to PACs but since the pathway was ablated, these cannot progress to SVTs States that she's had no cardiac symptoms at all this past year Follow up with cardiology as scheduled (3) Hyperbilirubinemia: Comment: Gilbert's syndrome Code(s): E80.6 - Other disorders of bilirubin metabolism Category: Medical Plan: Serum bilirubin level has been consistently elevated on her labs but patient remains asymptomatic She most likely has Gilbert's syndrome, which is benign and no intervention is needed in this case However, I have noted on her past abdominal CT and MRI done back in 2012 that patient had a pancreatic cyst at the time as well as multiple small hepatic cysts that were all deemed benign after her imaging tests were done As her serum bilirubin has increased significantly on her current labs, will have patient get a follow up abdominal US for further evaluation - discussed with patient that I do not really have any immediate concerns and that this is more of a precaution - sonogram ordered Will continue to monitor her bilirubin level and LFTs regularly (4) Asthma: Code(s): J45.909 - Unspecified asthma, uncomplicated Category: Medical Qualifiers: Asthma severity: mild Asthma persistence: intermittent Asthma complication type: uncomplicated Qualified Code(s): J45.20 - Mild intermittent asthma, uncomplicated Plan: Stable/asymptomatic Follow-up with pulmonary as scheduled or as needed (5) Nodule of neck: Code(s): R22.1 - Localized swelling, mass and lump, neck Category: Medical Plan: She has been referred to ENT and is scheduled to see them in [place] in early May 2024 for further evaluation of her anterior neck cyst, which I suspect may be a thyroglossal duct cyst (6) Vitamin D deficiency: Code(s): E55.9 - Vitamin D deficiency, unspecified Category: Medical Plan: Improving - continue OTC Vitamin D3 2000 units QD (7) Anxiety: Code(s): F41.9 - Anxiety disorder, unspecified Category: Medical Plan: She reports feeling anxious at times lately and has been trying to stay busy / stay active to help her manage her anxiety, as she prefers not to take any Rx for anxiety as much as possible (8) Overweight (BMI 25.0-29.9): Code(s): E66.3 - Overweight Category: Medical Plan: Reinforced diet/exercise as tolerated/lose weight Plan As requested, flu vaccine given to the patient today To return in 1 year for her next annual physical examination but advised that we may need to get her back in earlier depending on how her abdominal US comes out and what ENT would recommend (if any) regarding her anterior neck cyst when they see her in May 2024 Orders: Orders US abdomen complete Today K76.89 - Other specified diseases of liver, K86.2 - Cyst of pancreas, R17 - Unspecified jaundice Complete Blood Count Auto Diff 1 Year D64.9 - Anemia, unspecified, Z00.00 - Encounter for general adult medical examination without abnormal findings Lipid Panel 1 Year E78.00 - Pure hypercholesterolemia, unspecified, Z00.00 - Encounter for general adult medical examination without abnormal findings Comprehensive [place]. Panel Fast 1 Year E78.00 - Pure hypercholesterolemia, unspecified, Z00.00 - Encounter for general adult medical examination without abnormal findings TSH reflex Free T4 1 Year E78.00 - Pure hypercholesterolemia, unspecified, Z00.00 - Encounter for general adult medical examination without abnormal findings UA CC w/rflx Micro + Cult 1 Year R30.0 - Dysuria, Z00.00 - Encounter for general adult medical examination without abnormal findings Vitamin D 25-OH Total 1 Year E55.9 - Vitamin D deficiency, unspecified, Z00.00 - Encounter for general adult medical examination without abnormal findings Influenza [id number] Immunization Today Z23 - Encounter for immunization Referrals Gastroenterology Referral Z12.11 - Encounter for screening for malignant neoplasm of colon Medications: New Fluarix Triv [id number] (PF) (flu vacc [id number] 6mos up(PF)) 0.5 mL IM ONCE 0.5 mL 0RF NS Z23 - Encounter for immunization
== END 2024-04-17 09:49 | disposition home or self-care (01) ==
PROVIDERS: PCP Internal Medicine; Visit Provider Internal Medicine
DX: Z00.00 Encounter for general adult medical examination without abnormal findings (principal); I47.10 Supraventricular tachycardia, unspecified; E80.6 Other disorders of bilirubin metabolism; J45.20 Mild intermittent asthma, uncomplicated; R22.1 Localized swelling, mass and lump, neck; E55.9 Vitamin D deficiency, unspecified; F41.9 Anxiety disorder, unspecified; E66.3 Overweight; Z23 Encounter for immunization

== ENCOUNTER → 2024-04-17 09:06 | Outpatient (BNVA) | payer OTHER, SELFPAY | PROVIDERS: PCP Internal Medicine; Visit Provider Internal Medicine | DX: Z00.00 Encounter for general adult medical examination without abnormal findings (principal); I47.10 Supraventricular tachycardia, unspecified; E80.6 Other disorders of bilirubin metabolism; J45.20 Mild intermittent asthma, uncomplicated; R22.1 Localized swelling, mass and lump, neck; E55.9 Vitamin D deficiency, unspecified; F41.9 Anxiety disorder, unspecified; E66.3 Overweight; Z68.28 Body mass index [BMI] 28.0-28.9, adult; Z23 Encounter for immunization | CPT/HCPCS: 90471; 90656; 96127 ==

== ENCOUNTER 2024-04-24 10:06 | Outpatient (REF) | payer OTHER, SELFPAY ==
--- NOTE | ~2024-04-24 | US_ITS ---
EXAMINATION: US ABDOMEN COMPLETE CLINICAL INFORMATION: Unspecified jaundice. COMPARISON: Correlated to CT dated April 18, 2013 TECHNIQUE: Real-time imaging of the abdominal viscera using grayscale and color Doppler technique. FINDINGS: PANCREAS: No peripancreatic fluid collections. ABDOMINAL AORTA: The proximal, mid, and distal segments demonstrated normal caliber. INFERIOR VENA CAVA: Visualized portions are normal. LIVER: Liver measures 15 cm. Coarse echotexture. There is a 1.5 cm hyperechoic lesion in the periphery of the posterior right hepatic lobe. There is a lobulated 2.3 cm anechoic lesion without flow on color Doppler interrogation in the anterior right hepatic lobe. No intrahepatic or extra hepatic biliary ductal dilatation. GALLBLADDER: Fluid-filled. There is a septation near the gallbladder neck. No pericholecystic fluid collection or gallbladder wall thickening. COMMON BILE DUCT: 3 mm in maximum diameter. RIGHT KIDNEY: 11 cm. Normal echotexture. Normal renal cortical thickness. No hydronephrosis. No solid lesion. There is a 0.7 cm anechoic lesion in the posterior midportion. Normal flow on color Doppler interrogation of the renal hilum. LEFT KIDNEY: 12 cm. Normal echotexture. No solid or cystic lesion. No hydronephrosis. There is normal flow on color Doppler interrogation of the renal hilum. SPLEEN: Per patient, splenectomy. FREE FLUID: None. US/US abdomen complete IMPRESSION: Probable 1.5 cm hemangioma, posterior right hepatic lobe. 2.3 cm cystic lesion, anterior right hepatic lobe. No hydronephrosis. Simple cyst, right kidney. Probable septation, gallbladder neck. Electronically signed by: Kana Pa MD 05/08/2024 12:41 PM EST
[2024-04-24 10:44] LABS: MANUAL DIFF FLAG NO
[2024-04-24 11:15] LABS: Basophils Absolute Auto 0.1 X10*3/uL (0.0-0.2); Eosinophils Percent Auto 0.4 % (0-4); Hemoglobin 16.2 g/dl (12.0-16.0); Imm Gran Abs Auto 0.02 X10*3/uL (0.00-0.03); Imm Gran Pct Auto 0.2 % (0.0-0.4); Lymphocytes Absolute Auto 1.9 X10*3/uL (1.2-4.9); Lymphocytes Percent Auto 20.1 % (20-40); Mean Corpuscular HGB Conc 34.5 g/dl (31.0-35.0); Mean Corpuscular Hemoglobin 32.6 pg (27.0-33.0); Mean Corpuscular Volume 94.6 fL (80.0-98.0); Mean Platelet Volume 10.1 fL (9.4-12.3); Monocytes Absolute Auto 0.6 X10*3/uL (0.1-1.2); Monocytes Percent Auto 5.9 % (2-11); Neutrophils Absolute Auto 6.8 x10*3/uL (2.0-8.3); Neutrophils Percent Auto 72.4 % (45-73); Platelet Count 391 X10*3/uL (160-400); Red Blood Count 4.97 X10*6/uL (4.20-5.50); Red Cell Distribution Width 13.7 % (11.0-16.0); White Blood Count 9.4 X10*3/uL (4.8-10.8)
[2024-04-24 11:37] LABS: Appearance Urine Clear; Color Urine Yellow; Glucose Urine UA Negative (Negative); Leukocyte Esterase Urine Trace (Negative); Nitrite Urine Negative (Negative); Specific Gravity - Urine 1.015 (1.005-1.025); UMIC TRIGGER UACC YES; Urine Blood Large (3+) (Negative); Urine Ketones 15 mg/dL (Negative); Urine Protein Negative (Neg-Trace)
[2024-04-24 11:42] LABS: Bacteria Urine Trace (None Seen); Hyaline Casts Urine 0-2 /LPF (0-2); WBC Urine 0-5 /HPF (0-5)
[2024-04-24 12:05] LABS: Cholesterol 210 mg/dL (<200); HDL Cholesterol 77 mg/dL (>40); LDL Cholesterol Calculated 120 mg/dL (<100); Triglycerides 67 mg/dL (<150)
[2024-04-24 12:23] LABS: TSH reflex Free T4 0.97 uIU/mL (0.32-4.0)
== END 2024-04-24 10:07 | disposition home or self-care (01) ==
LOC: HO.US 10:06
PROVIDERS: PCP Internal Medicine; Visit Provider Internal Medicine
DX: R17 Unspecified jaundice (principal); Z00.00 Encounter for general adult medical examination without abnormal findings; E78.00 Pure hypercholesterolemia, unspecified; E55.9 Vitamin D deficiency, unspecified; K86.2 Cyst of pancreas
CPT/HCPCS: 36415; 76700; 80061; 81001; 82306; 84443; 85025

== ENCOUNTER → 2024-04-24 10:41 | Outpatient (BNV) | payer OTHER, SELFPAY | PROVIDERS: PCP Internal Medicine; Visit Provider Radiology Diagnostic Radiology | DX: R17 Unspecified jaundice (principal) | CPT/HCPCS: 76700 ==

== ENCOUNTER 2024-05-13 13:35 | Outpatient (AMB) | payer OTHER, SELFPAY ==
--- NOTE | 2024-05-13 13:38 | MHC.OFFVIS ---
Vital Signs 05/13/24 13:47 Height 5 ft 6 in Weight 1816 lb BMI 293.1 BP 160/76 H Blood Pressure Location Lt brachial Position Sitting Pulse 88 Intake Visit Reasons: malformations of gallbladder Intake Note: Patient is seen in office for evaluation of the gallbladder. Pt c/o: had ultrasound done for other issues and was told about the gallbladder, does not have any symptoms, denies n/v/d/c, no abdominal pain us:04/24/24 ref Haroon Casket Trimmer Required: No Accompanied by: Self / Same As Patient Allergies No Known Allergies [No Known Allergies*] Allergy (Verified 05/13/24 13:44) Medication List - Last Reconciled 05/13/24 by Luis Carlos Whitley MD No Known Home Meds HPI Comments Details: 53-year-old female patient with a history of elevated bilirubin levels thought to be due to Gilbert's disease found on routine ultrasound to have a septation in the gallbladder wall. The patient denies a history of abdominal pain, nausea, vomiting, fatty food intolerance, diarrhea or other intestinal symptoms. She does have occasional stomach upset due to sinus infections. No pericholecystic fluid, gallstone, common duct dilatation or other significant findings were noted by ultrasound. Patient presents to discuss further management of this gallbladder change. 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) H/O section Social History Housing: House Alcohol intake: current Alcohol intake frequency: 3 or more drinks per day Patient Tobacco Use Status: Former Tobacco user e-Cigarette/Vaping Use: Never Used Second Hand Smoke Exposure: Yes service: No Current occupational status: employed 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 Cognitive needs: No Hearing needs: No Vision needs: Yes Review of Systems Const All systems reviewed & are unremarkable except as noted in HPI and below Physical Exam Vital Signs: Last Vital Signs Pulse 88 05/13/24 13:47 BP 160/76 H 05/13/24 13:47 BMI result Body Mass Index 293.1 Const General: no acute distress Nutritional Appearance: well nourished Orientation/consciousness: patient oriented x3 HEENT Head: Yes normocephalic and Yes atraumatic Eyes Sclerae: sclerae normal Resp Effort & Inspection: normal respiratory effort GI Inspection: Yes normal to inspection Palpation (GI): Soft to palpation, nontender, no guarding and not rigid Skin Other: Warm, dry, normal color Neuro General: patient oriented x3 Extrem General: Yes no clubbing, cyanosis or edema Results Reviewed Results Reviewed: Ultrasound abdomen: Assessment & Plan Assessment & Plan (1) 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 This is the so-called Phrygian cap. The patient is asymptomatic from the gallbladder therefore no surgical intervention is warranted at this time. I reviewed the typical symptoms associated with the gallbladder disease. She should call if the symptoms do develop. Coding Level of Care Code New Pt Level 4 (88403) Diagnoses Septation of gallbladder Q44.1
[2024-05-13 13:47] VITALS: BP 160/76; PULSE 88; BMI 293.1
== END 2024-05-13 14:15 | disposition home or self-care (01) ==
PROVIDERS: PCP Internal Medicine; Visit Provider Surgery
DX: Q44.1 Other congenital malformations of gallbladder (principal)
CPT/HCPCS: 99204

== ENCOUNTER 2024-06-20 09:01 | Outpatient (REF) | payer OTHER, SELFPAY ==
--- OUTSIDE RECORDS SUMMARY | 2024-06-20 09:18 | XMS_ITS | Data Portability ---
Author Organization [place] - [facility], Allergy Address [address] [place] [phone] Care Team Providers Care Software Quality Manager Name Role Phone LISA ABDALLA Primary Care Provider Assessment No assessment recorded. Plan of Treatment Reminders Order Date Submit Date Provider Last Modified By Organization Details Last Modified Time Details Appointments None record ed. Lab None record ed. Referral None record ed. Procedures None record ed. Surgeries None record ed. Imaging None record ed. Medication Orders None record ed. Patient TargetsNo targets recorded. Patient InstructionsNo instructions recorded. Reason for Referral None Reported. Problems Name Problem SNOMED Code Status Onset Date Resolution Date Notes Provider Name and Address Organization Details Recorded Time Multinodular goiter 662348652 Active 2023 SARAH BETH SMYTH MD [address] [place] [address], [phone], [facility] - [facility] 4 12:21:34 Thyroid nodule 729520531 Active 2023 SARAH BETH SMYTH MD [address] [place] [address], [phone], [facility] - [facility] 4 12:21:41 Problem Notes None recorded. Procedures Surgical History Date Name Laterality Status Provider Name and Address Organization Details Recorded Time Removal of spleen total completed SARAH BETH SMYTH MD [address] [place] [address], [phone], [facility] - [facility] 04/25/2024 12:18:19 Pancreatectomy completed SARAH BETH SMYTH MD [address] [place] [address], [phone], [facility] - [facility] 04/25/2024 12:18:26 section completed SARAH BETH SMYTH MD [address] [place] [address], [phone], [facility] - [facility] 04/25/2024 12:18:33 Imaging Results None recorded. Procedure Notes None recorded. Medical Equipment None Reported. Allergies No known drug allergies Medications Name Sig Start Date Stop Date Status Note LastModified by Organization Details LastModified Time nitrofurant oin monohydrate /macrocryst als 100 mg capsule TAKE 1 CAPSULE ORALLY EVERY 12 HOURS FOR 5 DAYS MUST ADMINISTE R WITH A MEAL/FOOD 04/25 completed Not Available Not Available Not Available Vitals Date Recorded Body height Body mass index (BMI) Body weight Provider Name and Address Organization Details Last Updated DateTime 04/25/2024 167.64 cm 29 kg/m2 17661.83 g Teodora Johnson [facility] 04/25/2024 11:01:44 Social History None recorded. Functional Status None recorded. Mental Status None recorded. Family History Nothing Reported. Medical History Condition Response Heart Problems Y Asthma Y Gynecological HistoryNo gynecological history recorded. Obstetrics History GPAL:G 0 P 0 0 0 0 Past Encounters Encounter ID Performer Location Encounter Start Date Encounter Closed Date Diagnosis/Indication Diagnosis SNOMED-CT Code Diagnosis ICD10 Code [id number] SARAH BETH SMYTH MD [facility] [address] [address] 04/25/2024 10:49:18 04/25/2024 11:26:41 Thyroid nodule 370281506 E04.1 Health Concerns Section Related Observation LastModified by Organization Detai ls LastModified Time None Recorded Concern Status LastModified by Organization Details LastModified Time None Recorded Advance Directives Directive None Recorded Payers Encounter Date Sequence Insurance Name Policy Number Policy Gipson Covered Member ID Gipson Member ID Guarantor Name 04/25/[address] [place] [address] [id number] 5 Nicole L L Earl [id number] Nicole L Earl Notes Date Note Type Note Provider Name and Address Organization Details Recorded Time 04/25/2024 text/html 53 yo F presents for neck swelling, first noticed a couple months ago. Has had a lot of post nasal drip. Sinus congestion. Feels upset stomach. Sleeps upright. Mother has history of goiter. Recent blood work showed normal TSH. Thyroid ultrasound showed multiple nodules up to 1.2 cm. This included 1.2 cm TR 3 isthmus nodule, 0.8 cm TR 3 isthmus nodule, 1.2 cm TR 1 right upper thyroid nodule, 1.0 TR 2 right mid thyroid nodule, 1.3 cm TR 2 right lower thyroid nodule. SARAH BETH SMYTH MD [address] [place] [address],[place] [address], [place], [phone], [facility] - [facility] 04/25/2024 12:26:27 OBGyn Episode No OBEpisode recorded.
--- OUTSIDE RECORDS SUMMARY | 2024-06-20 09:18 | XMS_ITS | Continuity of Care Document ---
Author Organization [place] - [facility] [place], [facility] Address [address] [place] [phone] Care Team Providers Care Architectural Wood Model Maker Name Role Phone LIANNE LISA Primary Care Provider Assessment No assessment recorded. [...] Address Organization Details Recorded Time Multinodular goiter 778135250 Active 2023 SARAH BETH SMYTH MD [address] [place] [address], [phone], [facility] - [facility] 4 12:21:34 Thyroid nodule 602928645 Active 2023 SARAH BETH SMYTH MD [address] [place] [address], [phone], [place] [facility] 4 12:21:41 Problem Notes None recorded. Procedures Surgical History Date Name Laterality Status Provider Name and Address Organization Details Recorded Time Removal of spleen total completed SARAH BETH SMYTH MD [address] [place] [address], [phone], [facility] - [facility] 04/25/2024 12:18:19 Pancreatectomy completed SARAH BETH SMYTH MD [address] [place] [address], [phone], [place] [facility] [place] 04/25/2024 12:18:26 section completed SARAH BETH SMYTH MD [address] [place] [address], [phone], [place] [facility] 04/25/2024 12:18:33 Imaging Results None recorded. Procedure [...] Updated DateTime 04/25/2024 167.64 cm 29 kg/m2 30008.83 g Teodora Miller [place] [facility] [place] 04/25/2024 11:01:44 Social History None recorded. Functional Status None recorded. Mental Status None recorded. Family History Nothing Reported. Medical History Condition Response Heart Problems Y Asthma Y Gynecological HistoryNo gynecological history recorded. Obstetrics History GPAL:G 0 P 0 0 0 0 Past Encounters Encounter ID Performer Location Encounter Start Date Encounter Closed Date Diagnosis/Indication Diagnosis SNOMED-CT Code Diagnosis ICD10 Code [id number] SARAH BETH SMYTH MD [facility] [address] [address] 04/25/2024 10:49:18 04/25/2024 11:26:41 Thyroid nodule 377979641 E04.1 Health Concerns Section Related Observation LastModified by Organization Detai ls LastModified Time None Recorded Concern Status LastModified by Organization Details LastModified Time None Recorded Payers Encounter Date Sequence Insurance Name Policy Number Policy Gipson Covered Member ID Gipson Member ID Guarantor Name 04/25/[address] [place] [address] [id number] 5 Nicole L L Earl [id number] Nicole L Earl Notes Date Note Type [...] lower thyroid nodule. SARAH BETH SMYTH MD [address] [place] [address],[place] [address], [place], [address], [facility] - [facility] 04/25/2024 12:26:27 OBGyn Episode No OBEpisode recorded.
== END 2024-06-20 09:02 | disposition home or self-care (01) ==
LOC: HO.US 09:01
PROVIDERS: PCP Internal Medicine; Visit Provider Urology
DX: N20.9 Urinary calculus, unspecified (principal)
CPT/HCPCS: 76775

== ENCOUNTER → 2024-06-20 09:02 | Outpatient (BNV) | payer OTHER, SELFPAY | PROVIDERS: PCP Internal Medicine; Visit Provider Radiology Diagnostic Radiology | DX: N20.0 Calculus of kidney (principal) | CPT/HCPCS: 76775 ==

== ENCOUNTER 2024-07-01 08:55 | Outpatient (AMB) | payer OTHER, SELFPAY ==
--- NOTE | 2024-07-01 08:59 | MHC.OFFVIS ---
Intake Visit Reasons: 1Y Ultrasound(Pending) Intake Note: Patient is Present for 1Y Follow Up Ultrasound Urology Medication: None Antibiotic Allergies: None Blood Thinners: None Senior Qc Technician Required: No Allergies No Known Allergies [No Known Allergies*] Allergy (Verified 07/01/24 08:59) HPI Comments Details: Nicole is a pleasant female. She is a patient Dr. aPtiño. She seen for the following urologic conditions - nephrolithiasis - renal cyst Initially found through evaluation of microscopic hematuria No stones on current imaging Encourage fluids 12 month follow-up Nephrolithiasis Stable Asymptomatic Imaging - 05/17 - renal ultrasound 4 mm left, stable cyst - 07/19 - renal ultrasound - left cyst stable Encourage fluids [place] with fluid intake PFSH Medical History Vitamin D deficiency Urolithiasis Hyperbilirubinemia Overweight (BMI 25.0-29.9) SVT (supraventricular tachycardia) Asthma Surgical History History of colonoscopy (~05/16/19) History of cardiac radiofrequency ablation (~06/2021) History of superficial keratectomy (~04/2017) History of splenectomy (~11/2013) History of pancreatectomy (~11/2013) H/O section Social History Housing: House Alcohol intake: current Alcohol intake frequency: 3 or more drinks per day Patient Tobacco Use Status: Former Tobacco user e-Cigarette/Vaping Use: Never Used Second Hand Smoke Exposure: Yes service: No Current occupational status: employed 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 Cognitive needs: No Hearing needs: No Vision needs: Yes Review of Systems Const Denies chills and Denies fever(s) Card Reports no additional complaints and Denies syncope Resp Denies cough GI Denies abdominal pain and Denies heartburn Reports as per HPI and Denies change in libido Neuro Denies syncope Psych Denies change in libido Endo Denies change in libido Physical Exam Const General: cooperative, healthy appearing, comfortable and no acute distress Orientation/consciousness: patient oriented x3 HEENT Face and sinus: Yes normal facial exam Mouth: moist mucous membranes Neck Neck: Yes normal visual inspection, Yes full ROM and Yes trachea midline Chest Chest palpation & inspection: normal inspection of the chest Resp Effort & Inspection: normal respiratory effort, able to speak in complete sentences and no respiratory distress GI Inspection: Yes normal to inspection Back/Spine/Pelvis Cervical Spine: normal cervical lordosis Thoracic/Lumbar Spine: thoracic and lumbar spine normal to inspection Skin General skin exam: no rashes or lesions noted Neuro General: patient oriented x3, gait normal, tone normal and moves all extremities Extrem General: Yes normal to inspection and Yes capillary refill normal Assessment & Plan Assessment & Plan (1) Urolithiasis: Code(s): N20.9 - Urinary calculus, unspecified Category: Medical Plan 12 month follow-up renal US tele Orders: Orders US renal BI 12 Months N20.9 - Urinary calculus, unspecified Patient Instructions: Imaging studies, laboratory and physical exam results were discussed and reviewed in detail. No major barriers to patient understanding were identified. An opportunity to ask questions regarding the treatment plan was provided. All questions were answered. The patient expressed understanding and agreement with the above treatment plan. The patient is aware they should contact our office by phone for worsening of their current condition or the appearance of new urologic symptoms. Compliance is encouraged with any medications and followup testing that is ordered. It is a privilege to participate in the urologic care of your patient. If you have any questions or concerns regarding treatment for the above conditions, or other urologic issues, please do not hesitate to contact me. The office telephone contact is [phone]. This note is constructed using voice recognition software. While every effort has been made to ensure accuracy chair pad maker errors may have been included. Yours sincerely, Dr Guillermo Greene MD, [facility] - Urology Providers of Expert, Compassionate Care for the Genitourinary System Coding Level of Care Code Est Pt Level 4 (39200) Diagnoses Urolithiasis N20.9
--- OUTSIDE RECORDS SUMMARY | 2024-07-01 09:18 | XMS_ITS | Continuity of Care Document ---
Author Organization [place] - [facility], [facility] Address [address] [place] [phone] Care Team Providers Care Field Administrator Name Role Phone LIANNE LISA Primary Care [...] Address Organization Details Recorded Time Multinodular goiter 833949433 Active 2023 SARAH BETH SMYTH MD [address] [place] [address], [phone], [facility] - [facility] 4 12:21:34 Thyroid nodule 515673459 Active 2023 SARAH BETH SMYTH MD [address] [place] [address], [phone], [place] [facility] 4 12:21:41 Problem Notes None recorded. Procedures Surgical History Date Name Laterality Status Provider Name and Address Organization Details Recorded Time Removal of spleen total completed SARAH BETH SMYTH MD [address] [place] [address], [phone], [facility] - [facility] 04/25/2024 12:18:19 Pancreatectomy completed SARAH BETH SMYTH MD [address] [place] [address], [phone], [place] [facility] 04/25/2024 12:18:26 section completed SARAH BETH SMYTH MD [address] [place] [address], [phone], [place] [facility] 04/25/2024 12:18:33 Imaging Results None recorded. Procedure [...] Updated DateTime 04/25/2024 167.64 cm 29 kg/m2 53300.83 g Teodora Miller [facility] 04/25/2024 11:01:44 Social History None recorded. Functional Status None recorded. Mental Status None recorded. Family History Nothing Reported. Medical History Condition Response Heart Problems Y Asthma Y Gynecological HistoryNo gynecological history recorded. Obstetrics History GPAL:G 0 P 0 0 0 0 Past Encounters Encounter ID Performer Location Encounter Start Date Encounter Closed Date Diagnosis/Indication Diagnosis SNOMED-CT Code Diagnosis ICD10 Code Diagnosis Note [id number] SARAH BETH SMYTH MD [facility] [address] [address] 04/25/2024 10:49:18 04/25/2024 11:26:41 Thyroid nodule 310876196 E04.1 53 yo F presents for neck swelling, first noticed a couple months ago. Exam notes 1.5 cm nodule just to the right of the thyroid isthmus, which elevates with swallowing . Thyroid ultrasound showed multiple nodules up to 1.2 cm. This included 1.2 cm TR 3 isthmus nodule, 0.8 cm TR 3 isthmus nodule, 1.2 cm TR 1 right upper thyroid nodule, 1.0 TR 2 right mid thyroid nodule, 1.3 cm TR 2 right lower thyroid nodule. We discussed that all of her nodules are clustered on the right and in the isthmus and this likely correspond s to what is noted on exam. The area of swelling is lateral and inferior to where I would expect a thyrogloss al duct cyst to be. We discussed that none of the nodules are large enough to generally warrant routine follow-up, but given clinical concern it may be worth rechecking in a year. I did addictions counselor her that I would not expect this neck swelling to can contribute to her symptoms of postnasal drip. She does not feel that the postnasal drip by itself is bothersome enough to warrant further investigat ion at this time. Health Concerns Section Related Observation LastModified by Organization Detai ls LastModified Time None Recorded Concern Status LastModified by Organization Details LastModified Time None Recorded Payers Encounter Date Sequence Insurance Name Policy Number Policy Gipson Covered Member ID Gipson Member ID Guarantor Name 04/25/[address] [place] [address] [id number] 5 Nicole Elliott [id number] Nicole Elliott Notes Date Note Type Note Provider Name [...] lower thyroid nodule. SARAH BETH SMYTH MD [address] [place] [address], [place], [phone], [facility] - [facility] 04/25/2024 12:26:27 OBGyn Episode No OBEpisode recorded.
--- OUTSIDE RECORDS SUMMARY | 2024-07-01 09:18 | XMS_ITS | Data Portability ---
Author Organization [place] - [facility], [facility] Address [address] [place] [address] Care Team Providers Care Act English Tutor Name Role Phone LISA ABDALLA Primary Care Provider [phone] Assessment No assessment recorded. Plan of Treatment [...] Address Organization Details Recorded Time Multinodular goiter 363708919 Active 2023 SARAH BETH SMYTH MD [address] [place] [address], [phone], [facility] - [facility] 4 12:21:34 Thyroid nodule 193773652 Active 2023 SARAH BETH SMYTH MD [address] [place] [address], [phone], [facility] - [facility] 4 12:21:41 Problem Notes None recorded. Procedures Surgical History Date Name Laterality Status Provider Name and Address Organization Details Recorded Time Removal of spleen total completed SARAH BETH SMYTH MD [address] [place] [address], [phone], [facility] - [facility] 04/25/2024 12:18:19 Pancreatectomy completed SARAH BETH SMYTH MD [address] [place] [address], [phone], [facility] - [facility] 04/25/2024 12:18:26 section completed SARAH BETH SMYTH MD [address] [place] [address], [phone], [place] [facility] 04/25/2024 12:18:33 Imaging Results None recorded. Procedure [...] Updated DateTime 04/25/2024 167.64 cm 29 kg/m2 65085.83 g Teodora Johnson E [facility] 04/25/2024 11:01:44 Social History None recorded. Functional Status None recorded. Mental Status None recorded. Family History Nothing Reported. Medical History Condition Response Heart Problems Y Asthma Y Gynecological HistoryNo gynecological history recorded. Obstetrics History GPAL:G 0 P 0 0 0 0 Past Encounters Encounter ID Performer Location Encounter Start Date Encounter Closed Date Diagnosis/Indication Diagnosis SNOMED-CT Code Diagnosis ICD10 Code Diagnosis Note [id number] SARAH BETH SMYTH MD [facility] [address] [address] 04/25/2024 10:49:18 04/25/2024 11:26:41 Thyroid nodule 280025847 E04.1 53 yo F presents for neck [...] worth rechecking in a year. I did sales counselor her that I would not expect [...] ID Gipson Member ID Guarantor Name 04/25/[address] [place] [address] [id number] Nicole Elliott [id number] Nicole Elliott Notes Date Note Type Note [...] lower thyroid nodule. SARAH BETH SMYTH MD [address] [place] [address], [place], [address], [facility] - [facility] 04/25/2024 12:26:27 OBGyn Episode No OBEpisode recorded.
== END 2024-07-01 09:28 | disposition home or self-care (01) ==
PROVIDERS: PCP Internal Medicine; Visit Provider Urology
DX: N20.9 Urinary calculus, unspecified (principal)
CPT/HCPCS: 99214

== ENCOUNTER → 2024-07-01 08:55 | Outpatient (BNVA) | payer OTHER, SELFPAY | PROVIDERS: PCP Internal Medicine; Visit Provider Urology ==

== ENCOUNTER 2024-10-07 08:08 | Outpatient (AMB) | payer OTHER, SELFPAY ==
--- NOTE | 2024-10-07 08:09 | A.OFFVIS_ITS ---
Vital Signs 10/07/24 08:18 Height 5 ft 6 in Weight 180 lb BMI 29.0 BP 132/78 Blood Pressure Location Rt brachial Position Sitting Pulse 82 Pulse Source Pulse Oximeter Pulse Oximetry (%) 97 Oxygen Delivery Method Room Air Intake Visit Reasons: Colonoscopy Screening Intake Note: NEW PATIENT for recall colo screening. Last with [facility] GI 2019. Chief Complaint; Pt denies any GI sx or concerns at this time. No pertinent FMHx. Heavy Equipment Operator/Paver Required: No Accompanied by: Self / Same As Patient Allergies No Known Allergies [No Known Allergies*] Allergy (Verified 10/07/24 08:09) HPI HPI Colonoscopy Screening: Details: 53 year old? female with past medical history of anxiety, liver cyst, pancreatic cyst, hyperbilirubinemia, asthma is here today for pre colonoscopy screening.? Patient was sent to us by her PCP.? Last colonoscopy was over 5 years ago. History of cardiac radiofrequency ablation in [address] Lao. 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 Patient denies any gastrointestinal symptoms in the past or at present.? Family history of colon polyps no CRC.? Denies history of difficulty with sedation or anesthesia in the past.? Negative for history of sleep apnea.? Denies any history of cardiac, renal or pulmonary disease.?? No history of infectious? diseases like hepatitis A, B, C, HIV or tuberculosis.? Patient is not on any anticoagulation. [facility] Medical History Vitamin D deficiency Urolithiasis Hyperbilirubinemia Overweight (BMI 25.0-29.9) SVT (supraventricular tachycardia) Asthma Surgical History History of colonoscopy (~05/16/19) History of cardiac radiofrequency ablation (~06/2021) History of superficial keratectomy (~04/2017) History of splenectomy (~11/2013) History of pancreatectomy (~11/2013) H/O section Social History Housing: House Alcohol intake: current Alcohol intake frequency: 3 or more drinks per day Patient Tobacco Use Status: Former Tobacco user e-Cigarette/Vaping Use: Never Used Second Hand Smoke Exposure: Yes service: No Current occupational status: employed 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 Cognitive needs: No Hearing needs: No Vision needs: Yes Review of Systems Const Denies weight gain and Denies weight loss ENT Reports no additional complaints, Denies dysphagia and Denies odynophagia Card Reports no additional complaints Resp Reports no additional complaints GI Denies abdominal pain, Denies belching, Denies melena, Denies bloating, Denies change in bowel habits, Denies dysphagia, Denies excessive flatus, Denies dyspepsia, Denies heartburn, Denies diarrhea, Denies loose stools, Denies nausea, Denies odynophagia and Denies vomiting Reports no additional complaints Musc Reports no additional complaints Neuro Reports no additional complaints Psych Reports no additional complaints Endo Reports no additional complaints Physical Exam Vital Signs: Last Vital Signs Pulse 82 10/07/24 08:18 BP 132/78 10/07/24 08:18 Pulse Ox 97 10/07/24 08:18 Oxygen Delivery Method Room Air 10/07/24 08:18 BMI result Body Mass Index 29.0 Const General: healthy appearing, no acute distress and well developed Nutritional Appearance: well nourished Orientation/consciousness: patient oriented x3 Resp Effort & Inspection: normal respiratory effort, able to speak in complete sentences, no tracheal deviation and symmetric chest movement Auscultation: clear to auscultation bilaterally Cardio Rate: regular rate GI Inspection: Yes normal to inspection and No distended Palpation (GI): Soft to palpation, not firm, nontender and No hepatosplenomegaly present Auscultation: normal bowel sounds General: Yes no CVA tenderness Back/Spine/Pelvis Back: no CVA tenderness Skin General skin exam: elasticity normal, turgor normal and dry skin Neuro General: patient oriented x3 Psych Appearance: grossly normal Mental Status: mental status grossly normal Assessment & Plan Assessment & Plan (1) Screen for colon cancer: Code(s): Z12.11 - Encounter for screening for malignant neoplasm of colon Plan Patient denies any GI, cardiac or respiratory symptoms.? Denies any issues with anesthesia in the past.? Denies any history of sleep apnea.? No history infectious diseases in the past or present.? Not on any anticoagulation thera py.? Family history of tubular adenomas. Patient's mom had large polyps.? Patient denies melena, hematochezia, unintentional weight loss or ribbon like stools.? Discussed at length the pre-procedure,? prep, diet & medications as well as what to expect prior, during and after the procedure.?? Stressed the importance of good bowel prep.? Recommended the use of Vaseline or Calmoseptine OTC & baby wipes with bowel movements to promote comfort.? ?Patient verbalizes understanding and agrees to plan of care.? She was given the opportunity to ask questions and all questions answered.? We will see her after the procedure.? Medications: New bisacodyl (Dulcolax (bisacodyl)) take 4 tabs at noon the day before your colonoscopy 20 mg (4 x 5 mg) PO ONCE 1 day 4 tabs 0RF Z12.11 - Encounter for screening for malignant neoplasm of colon polyethylene glycol 3350 (Miralax) As directed by gastroenterology department at [facility] 238 grams PO ONCE 238 grams 0RF Z12.11 - Encounter for screening for malignant neoplasm of colon Coding Level of Care Code New Pt Level 3 (15523) Diagnoses Screen for colon cancer Z12.11 Time Spent (min) 40 Comment 30 minutes spent with patient and additional 10 minutes spent reviewing her records
--- OUTSIDE RECORDS SUMMARY | 2024-10-07 08:13 | XMS_ITS | Data Portability ---
Author Organization [place] - [facility], Allergy Address [address] [place] [id number] Care Team Providers Care Rotary Drill Rig Operator Name Role Phone LISA ABDALLA Primary Care Provider [phone] Assessment No assessment recorded. Plan of Treatment [...] Address Organization Details Recorded Time Multinodular goiter [id number] Active 2023 SARAH BETH SMYTH MD [address] [place] [address], [phone], [facility] - [facility] 4 12:21:34 Thyroid nodule [id number] Active 2023 SARAH BETH SMYTH MD [address] [place] [address], [phone], [facility] - [facility] 4 12:21:41 Problem Notes None recorded. Procedures Surgical History Date Name Laterality Status Provider Name and Address Organization Details Recorded Time Removal of spleen total completed SARAH BETH SMYTH MD [address] [place] [address], [phone], [facility] - [facility] 04/25/2024 12:18:19 Pancreatectomy completed SARAH BETH SMYTH MD [address] [place] [address], [phone], [facility] - [facility] 04/25/2024 12:18:26 section completed SARAH BETH SMYTH MD [address] [place] [address], [phone], [place] - [facility] 04/25/2024 12:18:33 Imaging Results None recorded. Procedure [...] Updated DateTime 04/25/2024 167.64 cm 29 kg/m2 55591.83 g Teodora Johnson [facility] 04/25/2024 11:01:44 Social History None recorded. Functional Status None recorded. Mental Status None recorded. Family History Nothing Reported. Medical History Condition Response Heart Problems Y Asthma Y Gynecological HistoryNo gynecological history recorded. Obstetrics History GPAL:G 0 P 0 0 0 0 Past Encounters Encounter ID Performer Location Encounter Start Date Encounter Closed Date Diagnosis/Indication Diagnosis SNOMED-CT Code Diagnosis ICD10 Code Diagnosis Note [id number] SARAH BETH SMYTH MD [facility] [address] [phone] 04/25/2024 10:49:18 04/25/2024 11:26:41 Thyroid nodule 156383497 E04.1 53 yo F presents for neck [...] worth rechecking in a year. I did cruise counselor her that I would not expect [...] ID Gipson Member ID Guarantor Name 04/25/[address] [place] [address] [id number] Nicole Elliott [id number] Nicole Elliott Notes Date Note Type Note [...] lower thyroid nodule. SARAH BETH SMYTH MD [address] [place] [address], [place], [phone], [facility] - [facility] 04/25/2024 12:26:27 OBGyn Episode No OBEpisode recorded.
--- OUTSIDE RECORDS SUMMARY | 2024-10-07 08:13 | XMS_ITS | Encounter Summary ---
Author Organization [facility] Address [address] [place] [address] Care Team Providers Care Engineering And Development Director Name Role Phone Martinez Patiño MD Primary Care Provider Reason for Visit * Reason Onset Date Comments Appointment 09/19/2024 Encounter Details Date Type Department Care Team (Late st Contact Info) Description 09/19/[address] [facility] [address] [place] [address] [place] [phone] Ariane Ho NP [address] [place] [address] [address] [place] [address] Appointment Social History Tobacco Use Types Packs/Day Years Used Date Smoking Tobacco: Former Smokeless Tobacco: Never Alcohol Use Standard Drinks/Week Comments Yes 0 (1 standard drink = 0.6 oz pur e alcohol) Comments Unknown Sex and Gender Information Value Date Recorded Sex Assigned at Not on file Legal Sex Female 2:43 PM EST Gender Identity Not on file Sexual Orientation Not on file documented as of this encounter Progress Notes * Kenji Sanchez - 09/19/2024 1:45 PM EDT Left message to reschedule appointment with Ariane Rabago on 09/25/24. She will not be available. Old patient. Can be booked same day with Dr. Bolaños as a New Patient Previous. Slot held. documented in this encounter Plan of Treatment Upcoming Encounters Date Type Department Care Team (Late st Contact Info) Description 03/03/2025 10:10 AM EDT Office Visit [facility] - [facility] [address] [place] [address] [address] [place] [address] Ariane Ho NP [address] [place] [address] [address] [place] [address] documented as of this encounter Visit Diagnoses Not on filedocumented in this encounter Care Teams Engineering And Development Director Relationship Specialty Start Date End Date Martinez Patiño MD [address] [place] [address] Dr [address] [place], [place] PCP - General 08/06/19 documented as of this encounter
--- OUTSIDE RECORDS SUMMARY | 2024-10-07 08:13 | XMS_ITS | Clinical Summary ---
Author Organization [facility] [place] [employer] [facility] Address [address] [place] [address] Phone Care Team Providers Care Central Office Frame Wirer Name Role Phone Martinez Patiño MD Primary Care Provider Allergies Active Allergy Reactions Criticality Noted Date Comments Propranolol Other High 04/28/2021 Active Problems Problem Noted Date Diagnosed Date PAC (premature atrial contraction) 08/01/2021 SVT (supraventricular tachycardia) ([facility] V24) 08/01/2021 Overview (06/30/2024): Last Assessment & Plan: Patient has history of palpitations secondary to SVT status post radiofrequency catheter ablation 06/2021. She denies any recurrent symptoms. She is not on any medical therapies. She denies any cardiac concerns. Palpitation 01/03/2021 Overview (06/30/2024): Last Assessment & Plan: Patient has history of palpitations which she states are happening more frequently and lasting for longer durations. She had a Holter monitor done in the past which showed brief episodes of SVT. Most recent lunchroom monitor completed 12/2020 did show 1 episode of nonsustained ventricular tachycardia up to 180 bpm. An EP consult has been ordered and she has an appointment with Dr. Lao in 2 days. Patient would like to consider ablation procedure as she does not want to trial any medications at this time. She had an echocardiogram completed recently which showed normal cardiac function and no significant valve disease. I have reviewed the results of her recent testing and she is looking forward to her upcoming appointment in the next couple days. I will make no changes today and we appreciate the EP consult. Encounters Date Type Department Care Team Description 09/19/2024 Telephone [facility] [address] [place] [address] Ariane Ho NP Appointment from Last 3 Months Surgical History Surgery Date Site/Laterality Comments SECTION PROCEDURE: HISTORICAL DELIVERY OTHER SURGICAL HISTORY 11/2013 PROCEDURE: HISTORY OTHER; COMMENT: Distal pancreatectomy and splendectomy for cyst EYE SURGERY 04/2017 Right PROCEDURE: HISTORICAL EYE SURGERY; COMMENT: Superficial keratectomy for corneal injury OTHER SURGICAL HISTORY 06/2021 PROCEDURE: HISTORY OTHER; COMMENT: Cardiac radiofrequency ablation OTHER SURGICAL HISTORY 11/2013 PROCEDURE: HISTORY OTHER; COMMENT: Pancreatectomy OTHER SURGICAL HISTORY 11/2013 PROCEDURE: HISTORICAL SPLENECTOMY Medical History Medical History Date Comments Asthma DX:Asthma Hyperbilirubinemia DX:Hyperbilir ubinemia Overweight (BMI 25.0-29.9) DX:Ov erweight (BMI 25.0-29.9) Urolithiasis DX:Urolithiasis Family History Medical History Relation Name Comments Lung cancer Father Hypertension Mother Other: Thyroid Problem Mother Other: palpitations Sister 1 No Known Problems Sister 2 No Known Problems Sister 3 No Known Problems Sister 4 No Known Problems Sister 5 No Known Problems Son Relation Name Status Comments Father Alive Mother Alive Sister 1 Alive Sister 2 Alive Sister 3 Alive Sister 4 Alive Sister 5 Alive Son Alive Social History Tobacco Use Types Packs/Day Years Used Date Smoking Tobacco: Former Smokeless Tobacco: Never Alcohol Use Standard Drinks/Week Comments Yes 0 (1 standard drink = 0.6 oz pur e alcohol) Comments Unknown Sex and Gender Information Value Date Recorded Sex Assigned at Not on file Legal Sex Female 2:43 PM EST Gender Identity Not on file Sexual Orientation Not on file Obstetrics History Last Filed Vital Signs Vital Sign Reading Time Taken Comments Blood Pressure 128/82 03/19/2023 1:50 PM EDT Sit ting L Arm Pulse 79 03/19/2023 1:50 PM EDT Temperature - - Respiratory Rate - - Oxygen Saturation - - Inhaled Oxygen Concentration - - Weight 79.4 kg (175 lb) 03/19/2023 1:50 PM EDT Height 170.2 cm (5' 7 ) 03/19/2023 1:50 PM EDT Body Mass Index 27.41 03/19/2023 1:50 PM EDT Plan of Treatment Upcoming Encounters Date Type Department Care Team (Late st Contact Info) Description 03/03/2025 10:10 AM EDT Office Visit [facility] [address] [place] [phone] Ariane Ho NP [address] [place] [address] [address] [place] [address] Health Maintenance Due Date Last Done Comments Breast Cancer Screening 1968 DTaP,Tdap,and Td Vaccines (1 - Tdap) 10/23/1987 Hepatitis B Vaccines (1 of 3 - 19+ 3-dose series) 10/23/1987 Cervical Cancer Screening: P ap Smear 1989 Pneumococcal Vaccine: 50+ Ye ars (1 of 1 - PCV) 2018 Zoster Vaccines (1 of 2) 2018 Cholesterol Screening (Lipid Panel) 06/03/2022 Colorectal Cancer Screening: Colonoscopy 06/03/2022 Depression Screening 06/03/2022 HIV Screening 06/03/2022 Hepatitis C Screening 06/03/2022 Social Influencers of Health Screening 06/03/2022 COVID-19 Vaccine ( - 2023-2 5 season) 2024 Influenza Vaccine (Season Ended) 2025 HIB Vaccines Aged Out No longer eligi ble based on patient's age to complete this topic HPV Vaccines Aged Out No longer eligi ble based on patient's age to complete this topic Hepatitis A Vaccines Aged Out No long er eligible based on patient's age to complete this topic IPV Vaccines Aged Out No longer eligi ble based on patient's age to complete this topic MMR Vaccines Aged Out No longer eligi ble based on patient's age to complete this topic Meningococcal ACWY Vaccine Aged Out N o longer eligible based on patient's age to complete this topic Meningococcal B Vaccine Aged Out No l onger eligible based on patient's age to complete this topic Pneumococcal Vaccine: Pediat rics (0 to 5 Years) and At-Risk Patients (6 to 64 Years) Aged Out No longer eligible b ased on patient's age to complete this topic RSV Immunization Patients Un jose 20 months Aged Out No longer eligible b ased on patient's age to complete this topic Varicella Vaccines Aged Out No longer eligible based on patient's age to complete this topic Insurance [place] [id number] [facility] Care Teams Central Office Frame Wirer Relationship Specialty Start Date End Date Martinez Patiño MD [address] [place] [address] Ana Luisa [address] KHADAR Stuart PCP - General 08/06/19
[2024-10-07 08:18] VITALS: BP 132/78; PULSE 82; O2SAT 97; BMI 29.0
== END 2024-10-07 09:07 | disposition home or self-care (01) ==
LOC: HO.HGI 08:09
PROVIDERS: PCP Internal Medicine; Visit Provider Nurse Practitioner Family
DX: Z01.818 Encounter for other preprocedural examination (principal); Z12.11 Encounter for screening for malignant neoplasm of colon
CPT/HCPCS: 99202

== ENCOUNTER → 2024-10-07 08:08 | Outpatient (BNVA) | payer OTHER, SELFPAY | PROVIDERS: PCP Internal Medicine; Visit Provider Nurse Practitioner Family ==

== ENCOUNTER 2024-10-24 11:30 | Outpatient (AMB) | payer OTHER, SELFPAY ==
[2024-10-24 11:37] VITALS: BP 132/84; PULSE 88; O2SAT 98; BMI 29.4
--- NOTE | 2024-10-24 11:37 | A.OFFPC_ITS ---
Vital Signs 3 10/24/24 11:37 Height 5 ft 6 in Weight 182 lb 2 oz BMI 29.4 BP 132/84 Blood Pressure Location Lt brachial Position Sitting Pulse 88 Pulse Source Pulse Oximeter Pulse Oximetry (%) 98 Oxygen Delivery Method Room Air Intake Visit Reasons: Request PE Bulk Intake Note: Pt is Allergies No Known Allergies [No Known Allergies*] Allergy (Verified 10/24/24 11:43) Medication List - Last Reconciled 10/24/24 by Diane Reyes PA-C bisacodyl (Dulcolax (bisacodyl)) 20 mg (4 x 5 mg) PO ONCE 1 day polyethylene glycol 3350 (Miralax) 238 grams PO ONCE Tobacco use date assessed: 04/17/24 Dental Screening Dental Screen Date: 04/17/24 HPI Request PE Bulk 2 HPI0 Details 54-year-old female with past medical his tory of SVT, asthma, obesity and anxiety last seen 03/[address] Patiño coming in for follow up. Patient tells us today she was seen by ear nose and throat having enlarging thyroid nodule. She did have ultrasound in February that showed multinodular thyroid TSH has been normal. She is here for a 2nd opinion is looking to have additional blood work done. [facility] Medical History Vitamin D deficiency Urolithiasis Hyperbilirubinemia Overweight (BMI 25.0-29.9) SVT (supraventricular tachycardia) Asthma Surgical History History of colonoscopy (~05/16/19) History of cardiac radiofrequency ablation (~06/2021) History of superficial keratectomy (~04/2017) History of splenectomy (~11/2013) History of pancreatectomy (~11/2013) H/O section Social History Housing: House Alcohol intake: current Alcohol intake frequency: 3 or more drinks per day Patient Tobacco Use Status: Former Tobacco user e-Cigarette/Vaping Use: Never Used Second Hand Smoke Exposure: Yes service: No Current occupational status: employed 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 1. Little interest or pleasure in doing things: not at all 2. Feeling down, depressed, or hopeless: not at all 3. Trouble falling or staying asleep, or sleeping too much: not at all 4. Feeling tired or having little energy: not at all 5. Poor appetite or overeating: not at all 6. Feeling bad about yourself - or that you are a failure or have let yourself or your family down: not at all 7. Trouble concentrating on things, such as reading the newspaper or watching television: not at all 8. Moving or speaking so slowly that other people could have noticed. Or the opposite - being so fidgety or restless that you have been moving around a lot more than usual: not at all 9. Thoughts that you would be better off or of hurting yourself in some way: not at all Total score: 0 Depression Screening Interpretation: Negative Depression Screening Done: Yes 89703 - PHQ-9 Billing: Yes Source: Developed by Drs. Santosh Colunga, Kya Martínez, Dario Barrios and colleagues, with an educational alyssa from [employer]. Thrive Questionnaire Date Thrive assessed: 10/17/24 I am a: Patient What is your living situation today?: I have a steady place to live Within the past 12 months, did the food you bought not last and you didn't have the money to get more?: Never true Within the past 12 months, did you worry whether your food would run out before you got money to buy more?: Never true Do you have trouble paying for medicines?: No Do you have trouble getting transportation to medical appointments?: No Do you have trouble paying your heating and electricity bill?: No Do you have trouble taking care of your child, family member or friend?: No Do you have trouble with day-to-day activities such as bathing, preparing meals, shopping, managing finances, etc.?: No Are you currently unemployed and looking for a job?: No Are you interested in more education?: No Please select the resources that you would like help with: None Currently or been in a relationship where the following occur: No concerns reported THRIVE Score: 0 AUDIT C Alcohol Use Questionnaire (AUDIT-C) 1. How often do you have a drink containing alcohol?: 4 or more times a week 2. How many drinks containing alcohol do you have on a typical day when you are drinking?: 1 or 2 3. How often do you have six or more drinks on one occasion?: Never Total Score: 4 DAVION-7 AMB Questionnaire DAVION-7 Date DAVION - 7 assessed: 10/24/24 Feeling nervous, anxious, or on edge: 0 = Not at all Not being able to stop or control worryin = Not at all Worrying too much about different things: 0 = Not at all Trouble relaxin = Not at all Being so restless that it is hard to sit still: 0 = Not at all Becoming easily annoyed or irritable: 0 = Not at all Feeling afraid as if something awful might happen: 0 = Not at all Total DAVION-7 score (0-4 normal; 5-9 mild; 10-14 moderate; 15-21 severe): 0 Source: Developed by Drs. Santosh Colunga, Kya Martínez, Dario Barrios and colleagues, with an educational alyssa from [employer]. DAVION-7 Assessment Billing DAVION-7 Assessment Tool: DAVION-7 Assessment 98215 Review of Systems Const Denies body aches, Denies chills, Denies fever(s), Denies headache(s) and Denies poor appetite Eyes Reports no additional complaints ENT Denies dysphagia, Denies dizziness, Denies headache(s) and Denies odynophagia Card Denies chest pain, Denies syncope, Denies edema, Denies irregular heart rhythm, Denies lightheadedness and Denies dyspnea Resp Denies cough and Denies dyspnea GI Denies abdominal pain, Denies constipation, Denies dysphagia, Denies diarrhea, Denies nausea, Denies odynophagia and Denies vomiting Reports no additional complaints Musc Reports no additional complaints and Denies abnormal gait Skin/Breast Reports system reviewed and no additional complaints, except as documented Neuro Denies abnormal gait, Denies dizziness, Denies syncope and Denies headache(s) Psych Reports no additional complaints Physical exam (Primary Care) Vital Signs: Last Vital Signs Pulse 88 10/24/24 11:37 BP 132/84 10/24/24 11:37 Pulse Ox 98 10/24/24 11:37 Oxygen Delivery Method Room Air 10/24/24 11:37 BMI result Body Mass Index 29.4 Tobacco/Smoking Status: Tobacco use Status Tobacco use date assessed 04/17/24 10/24/24 11:39 Patient Tobacco Use Status Former Tobacco user 10/24/24 11:39 e-Cigarette/Vaping Use Never Used 10/24/24 11:39 PHQ-9: PHQ-9 Score PHQ-9: Total score 0 10/24/24 11:42 Depression Screening Interpretation: Negative Thrive Assessment: Date of Thrive Assessment Date Thrive assessed 10/17/24 10/24/24 11:39 Currently or been in a relationship where the following occur: No concerns reported Const General: cooperative, healthy appearing, comfortable and no acute distress Orientation/consciousness: patient oriented x3 HENMT Other: soft, nontender thyroid without enlargement Head: Yes normocephalic Ears: hearing grossly normal bilaterally General nose exam: Normal external nose present Face images: 2 1. soft, non tender nodule Eyes General: appearance normal, both eyes and all related structures Conjunctivae: conjunctivae normal Neck Neck: Yes full ROM and Yes no lymphadenopathy Resp Effort & Inspection: normal respiratory effort Auscultation: clear to auscultation bilaterally, no crackles, no rales, no rhonchi and no wheezes Cardio Rate: regular rate Rhythm: regular rhythm Skin General skin exam: no rashes or lesions noted Neuro General: patient oriented x3 Gait exam (Neuro): Normal gait present Extrem General: Yes normal to inspection, Yes full ROM and No edema Psych Affect: normal affect Attitude: cooperative Insight: Good insight present (Psych) Judgement: Good judgement present (Psych) Coding Level of Care Code Est Pt Level 3 (37038) Diagnoses Thyroid nodule E04.1 Multinodular thyroid E04.2 Additional Codes DAVION-7 Assessment Billing - DAVION-7 Assessment Tool: DAVION-7 Assessment 47971 ([id number]) PHQ-9 - 04317 - PHQ-9 Billing: Yes ([id number]) Assessment & Plan Assessment & Plan (1) Thyroid nodule: Code(s): E04.1 - Nontoxic single thyroid nodule Category: Medical Plan: Patient does have palpable thyroid nodule at the base of the thyroid. Plan to obtain repeat ultrasound for further evaluation and ordered for additional thyroid testing. (2) Multinodular thyroid: Code(s): E04.2 - Nontoxic multinodular goiter Category: Medical Plan: Patient having previous ultrasound showing multinodular thyroid has had normal thyroid testing in the past. Plan to obtain thyroid ultrasound as well as additional testing. Referral was placed to endocrinology as well for multinodular thyroid. Plan This note was constructed using voice recognition software. While every effort has been made to ensure accuracy and carrier associate, still areas may have been included sometimes these areas may affect the content or meeting of the given symptoms. Total time spent caring for the patient today was 20 minutes. This includes time spent before the visit reviewing the chart, time spent during the visit, and time spent after the visit and documentation. Patient was informed and verbally consented to the use of an ambient scribe for clinic note documentation during this visit. Orders: Orders 2 Free T4 (Free Thyroxine) Today E04.1 - Nontoxic single thyroid nodule Triiodothyronine T3 Free Today E04.1 - Nontoxic single thyroid nodule TSH reflex Free T4 Today E04.1 - Nontoxic single thyroid nodule US thyroid Today E04.2 - Nontoxic multinodular goiter Referrals 2 Endocrinology Referral E04.2 - Nontoxic multinodular goiter
--- OUTSIDE RECORDS SUMMARY | 2024-10-24 12:29 | XMS_ITS | Data Portability ---
Author Organization [place] - [facility] Address [address] [place] [phone] Care Team Providers Care Aircraft Electronics Technical Officer Name Role Phone LISA ABDALLA Primary Care [...] Address Organization Details Recorded Time Multinodular goiter 153126715 Active 2023 SARAH BETH SMYTH MD [address] [place] [address], [phone], [facility] - [facility] 4 12:21:34 Thyroid nodule 573147691 Active 2023 SARAH BETH SMYTH MD [address] [place] [address], [phone], [facility] - [facility] 4 12:21:41 Problem Notes None recorded. Procedures Surgical History Date Name Laterality Status Provider Name and Address Organization Details Recorded Time Removal of spleen total completed SARAH BETH SMYTH MD [address] [place] [address], [phone], [facility] - [facility] 04/25/2024 12:18:19 Pancreatectomy completed SARAH BETH SMYTH MD [address] [place] [address], [phone], [facility] - [facility] 04/25/2024 12:18:26 section completed SARAH BETH SMYTH MD [address] [place] [address], [phone], [place] - [facility] 04/25/2024 12:18:33 Imaging Results None recorded. Procedure [...] Updated DateTime 04/25/2024 167.64 cm 29 kg/m2 57781.83 g Teodora Johnson [facility] 04/25/2024 11:01:44 Social History None recorded. Functional Status None recorded. Mental Status None recorded. Family History Nothing Reported. Medical History Condition Response Heart Problems Y Asthma Y Gynecological HistoryNo gynecological history recorded. Obstetrics History GPAL:G 0 P 0 0 0 0 Past Encounters Encounter ID Performer Location Encounter Start Date Encounter Closed Date Diagnosis/Indication Diagnosis SNOMED-CT Code Diagnosis ICD10 Code Diagnosis Note [id number] SARAH BETH SMYTH MD [facility] [address] [address] 04/25/2024 10:49:18 04/25/2024 11:26:41 Thyroid nodule 637655656 E04.1 53 yo F presents for neck [...] worth rechecking in a year. I did extension course counselor her that I would not expect [...] ID Gipson Member ID Guarantor Name 04/25/[address] [place] [address] [id number] 5 Nicole Elliott [id number] Nicole Elliott Notes Date Note Type Note [...] lower thyroid nodule. SARAH BETH SMYTH MD [address] [place] [address], [place], [phone], [facility] - [facility] 04/25/2024 12:26:27 OBGyn Episode No OBEpisode recorded.
--- OUTSIDE RECORDS SUMMARY | 2024-10-24 12:29 | XMS_ITS | Clinical Summary ---
Author Organization [facility] Beauty Noted [facility] Address [address] [place] [address] Phone Care Team Providers Care Technical Trainer Name Role Phone Maritnez Patiño MD Primary Care Provider Allergies Active Allergy Reactions Criticality Noted Date Comments Propranolol Other High 04/28/2021 Active Problems Problem Noted Date Diagnosed Date PAC (premature atrial contraction) 08/01/2021 SVT (supraventricular tachycardia) ([facility] V24) 08/01/2021 Overview (06/30/2024): Last Assessment & [...] showed brief episodes of SVT. Most recent residential monitor completed 12/2020 did show 1 episode [...] Type Department Care Team Description 09/19/[address] [facility] [address] [place] [address] Ariane Ho NP Appointment from [...] 03/03/2025 10:10 AM EDT Office Visit [facility] [address] [place] [phone] Ariane Ho NP [address] [place] [address] [address] [place] [address] Health Maintenance Due Date Last Done Comments [...] to complete this topic Insurance KHADAR STUART [id number] [facility] Care Teams Technical Trainer Relationship Specialty Start Date End Date Martinez Patiño MD [address] [place] [address] Ana Luisa 101 KHADAR Stuart PCP - General 08/06/19
== END 2024-10-24 12:10 | disposition home or self-care (01) ==
LOC: HO.HMCH 11:31
PROVIDERS: PCP Internal Medicine
DX: E04.1 Nontoxic single thyroid nodule (principal); E04.2 Nontoxic multinodular goiter

== ENCOUNTER → 2024-10-24 11:30 | Outpatient (BNVA) | payer OTHER, SELFPAY | PROVIDERS: PCP Internal Medicine | DX: E04.2 Nontoxic multinodular goiter (principal) | CPT/HCPCS: 96127 ==

== ENCOUNTER 2024-11-28 15:22 | Outpatient (REF) | payer OTHER, SELFPAY ==
--- OUTSIDE RECORDS SUMMARY | 2024-11-28 15:25 | XMS_ITS | Data Portability ---
Author Organization [place] - [facility] Address [address] [place] [phone] Care Team Providers Care Polysomnographic Technician Name Role Phone LISA ABDALLA Primary Care [...] Address Organization Details Recorded Time Multinodular goiter 191605598 Active 2023 SARAH BETH SMYTH MD [address] [place] [address], [phone], [facility] - [facility] 4 12:21:34 Thyroid nodule 302171046 Active 2023 SARAH BETH SMYTH MD [address] [place] [address], [phone], [facility] - [facility] 4 12:21:41 Problem Notes None recorded. Procedures Surgical History Date Name Laterality Status Provider Name and Address Organization Details Recorded Time Removal of spleen total completed SARAH BETH SMYTH MD [address] [place] [address], [phone], [facility] - [facility] 04/25/2024 12:18:19 Pancreatectomy completed SARAH BETH SMYTH MD [address] [place] [address], [phone], [facility] - [facility] 04/25/2024 12:18:26 section completed SARAH BETH SMYTH MD [address] [place] [address], [phone], [place] [facility] 04/25/2024 12:18:33 Imaging Results None recorded. Procedure [...] Updated DateTime 04/25/2024 167.64 cm 29 kg/m2 19690.83 g Teodora Johnson [facility] 04/25/2024 11:01:44 Social History None recorded. Functional Status None recorded. Mental Status None recorded. Family History Nothing Reported. Medical History Condition Response Heart Problems Y Asthma Y Gynecological HistoryNo gynecological history recorded. Obstetrics History GPAL:G 0 P 0 0 0 0 Past Encounters Encounter ID Performer Location Encounter Start Date Encounter Closed Date Diagnosis/Indication Diagnosis SNOMED-CT Code Diagnosis ICD10 Code Diagnosis Note [id number] SARAH BETH SMYTH MD [facility] [address] [address] 04/25/2024 10:49:18 04/25/2024 11:26:41 Thyroid nodule 063969758 E04.1 53 yo F presents for neck [...] worth rechecking in a year. I did marriage counselor her that I would not expect [...] Recorded Advance Directives Directive None Recorded Payers Insurance Date Sequence Insurance Name Policy Number Policy Gipson Covered Member ID Gipson Member ID Guarantor Name 04/25/[address] [place] [address] [id number] 5 Nicole Elliott [id number] Nicole Elliott Notes Date Note Type Note [...] lower thyroid nodule. SARAH BETH SMYTH MD [address] [place] [address], [place], [address], [facility] - [facility] 04/25/2024 12:26:27 OBGyn Episode No OBEpisode recorded.
[2024-11-28 16:24] LABS: Free T4 (Free Thyroxine) 1.13 ng/dL (0.71-1.85); TSH reflex Free T4 0.87 uIU/mL (0.32-4.0)
[2024-11-29 07:13] LABS: Triiodothyronine T3 Free 3.3 pg/mL (2.3-4.2)
== END 2024-11-28 15:23 | disposition home or self-care (01) ==
LOC: HO.LAB 15:22
PROVIDERS: PCP Internal Medicine; Visit Provider Internal Medicine
DX: E04.1 Nontoxic single thyroid nodule (principal)
CPT/HCPCS: 36415; 84439; 84443; 84481

== ENCOUNTER 2024-12-11 13:28 | Outpatient (REF) | payer OTHER, SELFPAY ==
--- NOTE | ~2024-12-11 | US_ITS ---
EXAMINATION: US THYROID CLINICAL INFORMATION: Nontoxic multinodular goiter. COMPARISON: March 13, 2024. TECHNIQUE: Linear transducer grayscale and color Doppler examination with attention to the region of the thyroid. FINDINGS: SIZE: Measurements of the thyroid lobes and nodules are given in sagittal, anteroposterior and transverse dimensions respectively. Right Thyroid Lobe: 6.5 x 1.7 x 1.9 cm, volume 11 mL. Previous: 5.2 x 1.5 x 2.1 cm, volume: 9 cc. Parenchyma: The gland echotexture is heterogeneous. Thyroid vascularity is normal. Left Thyroid Lobe: 5.6 x 1.3 x 1.3 cm, volume 5 mL. Previous: 5.3 x 1.4 x 1.2 cm, volume 5 cc. Parenchyma: The gland echotexture is heterogeneous. Thyroid vascularity is normal. Isthmus: 0.8 cm in maximum AP dimension. Previous: 0.4 cm. Estimated total number of nodules greater than or equal to 1 cm: 4. Catheterization Laboratory Technician nodules are described as follows: 1. Location: Right isthmus.. Size: 1.3 x 1.0 x 1.4 cm, volume 0.9 mL. Previous: 1.2 x 1.2 x 0.7 cm, volume: 0.5 cc. Nodule characteristics: Composition: Solid/almost completely solid (2). Echogenicity: Hypoechoic (2). Shape: Not taller than wide (0). Margins: Smooth (0). Echogenic Foci: None (0). ACR TI-RADS total points: 4 ACR TI-RADS category: 4 2. Location: Right upper lobe. Size: 1.3 x 1.1 x 1.0 cm, volume 0.7 mL. Previous: 1.2 x 1.0 x 0.9 cm, volume: 0.6 cc. Nodule characteristics: Composition: Spongiform (0). Echogenicity: Shape: Margins: Echogenic Foci: ACR TI-RADS total points: 0 ACR TI-RADS category: 1 3. Location: Mid to lower pole right lobe. Size: 1.8 x 1.6 x 1.3 cm, volume 2.0 mL. Previous: 1.0 x 0.9 x 1.3 cm, volume, 0.6 cc. Nodule characteristics: Composition: Mixed cystic and solid (1). Echogenicity: Isoechoic (1). Shape: Taller than wide (3). Margins: Smooth (0). Echogenic Foci: None (0). ACR TI-RADS total points: 5 ACR TI-RADS category: 5 4. Location: Lower pole left lobe. Size: 1.3 x 1.0 x 0.9 cm, volume 0.6 mL. Previous: 1.0 x 0.9 x 1.0 cm, volume: 0.5 cc. Nodule characteristics: Composition: Spongiform (0). Echogenicity: Shape: Margins: Echogenic Foci: ACR TI-RADS total points: 0 ACR TI-RADS category: 1 NODES: No lymphadenopathy is seen in the tissue surrounding the thyroid gland. US/US thyroid IMPRESSION: ACR TI-RADS 4 and 5 ACR TI-RADS RECOMMENDATION REFERENCE: Ultrasound-guided fine-needle aspiration, followup ultrasound, no further follow up. * TR1 (0 point) and TR2 (2 points): No FNA or follow up. * TR3 (3 points): FNA if more than or equal to 2.5 cm in maximum dimension, followup ultrasound in 1, 3 and 5 years if 1.5 to 2.4 cm in maximum dimension. * TR4 (4-6 points): FNA if more than or equal to 1.5 cm in maximum dimension, followup ultrasound in 1, 2, 3 and 5 years if 1 to 1.4 cm in maximum dimension. * TR5 (more than or equal to 7 points): FNA if more than or equal to 1 cm in maximum dimension, followup ultrasound every year for 5 years if 0.5 to 0.9 cm in maximum dimension. * TR3, TR4 or TR5 nodules that are below the size threshold for followup receive no follow up. Electronically signed by: Kana Pa MD 12/11/2024 02:39 PM EDT
--- OUTSIDE RECORDS SUMMARY | 2024-12-11 14:36 | XMS_ITS | Data Portability ---
Author Organization [place] - [facility] Address [address] [place] [phone] Care Team Providers Care Automotive Parts Counter Assistant Name Role Phone LISA ABDALLA Primary Care [...] Address Organization Details Recorded Time Multinodular goiter 651021043 Active 2023 SARAH BETH SMYTH MD [address] [place] [address], [phone], [facility] - [facility] 4 12:21:34 Thyroid nodule 619935867 Active 2023 SARAH BETH SMYTH MD [address] [place] [address], [phone], [facility] - [facility] 4 12:21:41 Problem Notes None recorded. Procedures Surgical History Date Name Laterality Status Provider Name and Address Organization Details Recorded Time Removal of spleen total completed SARAH BETH SMYTH MD [address] [place] [address], [phone], [facility] - [facility] 04/25/2024 12:18:19 Pancreatectomy completed SARAH BETH SMYTH MD [address] [place] [address], [phone], [facility] - [facility] 04/25/2024 12:18:26 section completed SARAH BETH SMYTH MD [address] [place] [address], [phone], [place] [facility] 04/25/2024 12:18:33 Imaging Results None recorded. Procedure [...] Updated DateTime 04/25/2024 167.64 cm 29 kg/m2 59736.83 g Teodora Johnson [facility] 04/25/2024 11:01:44 Social History None recorded. Functional Status None recorded. Mental Status None recorded. Family History Nothing Reported. Medical History Condition Response Heart Problems Y Asthma Y Gynecological HistoryNo gynecological history recorded. Obstetrics History GPAL:G 0 P 0 0 0 0 Past Encounters Encounter ID Performer Location Encounter Start Date Encounter Closed Date Diagnosis/Indication Diagnosis SNOMED-CT Code Diagnosis ICD10 Code Diagnosis Note [id number] SARAH BETH SMYTH MD [facility] [address] [address] 04/25/2024 10:49:18 04/25/2024 11:26:41 Thyroid nodule 322539798 E04.1 53 yo F presents for neck [...] worth rechecking in a year. 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 SARAH BETH SMYTH MD [address] [place] [address], [place], [phone], [facility] - [facility] 04/25/2024 12:26:27 OBGyn Episode No OBEpisode recorded.
== END 2024-12-11 13:29 | disposition home or self-care (01) ==
LOC: HO.US 13:28
PROVIDERS: PCP Internal Medicine
DX: E04.2 Nontoxic multinodular goiter (principal)
CPT/HCPCS: 76536

== ENCOUNTER → 2024-12-11 13:29 | Outpatient (BNV) | payer OTHER, SELFPAY | PROVIDERS: PCP Internal Medicine; Visit Provider Radiology Diagnostic Radiology | DX: E04.2 Nontoxic multinodular goiter (principal) | CPT/HCPCS: 76536 ==

== ENCOUNTER 2025-05-04 08:19 | Day surgery (SDC) | payer OTHER, SELFPAY ==
--- OUTSIDE RECORDS SUMMARY | 2025-02-20 12:58 | XMS_ITS | Clinical Summary ---
Author Organization [facility] Address [address] [place] [address] Phone Care Team Providers Care Cinder Snapper Name Role Phone Martinez Patiño MD Primary Care Provider Allergies Active Allergy Reactions Criticality Noted Date Comments Propranolol Other High 04/28/2021 Active Problems Problem Noted Date Diagnosed Date PAC (premature atrial contraction) 08/01/2021 SVT (supraventricular tachycardia) ([facility] V24) 08/01/2021 Overview (06/30/2024): Last [...] today and we appreciate the EP consult. Surgical History Surgery Date Site/Laterality Comments SECTION [...] Description 03/03/2025 10:10 AM EDT Office Visit [facility] [address] [place] [address] Ariane Ho NP [address] [place] [address] [place] [phone] Health Maintenance Due Date Last Done Comments Breast Cancer Screening 1968 DTaP,Tdap,and Td Vaccines (1 - Tdap) 10/23/1987 Hepatitis B Vaccines (1 of 3 - 19+ 3-dose series) 10/23/1987 Cervical Cancer Screening: P ap Smear 1989 Pneumococcal Vaccine: 50+ Ye ars (1 of 1 - PCV) 2018 Zoster Vaccines (1 of 2) 2018 Colorectal Cancer Screening: Colonoscopy 06/03/2022 HIV Screening 06/03/2022 Hepatitis C Screening 06/03/2022 Social Influencers of Health Screening 06/03/2022 COVID-19 Vaccine (1 - 2023-2 5 season) 2024 Depression Screening 06/25/2024 Influenza Vaccine (#1) 2025 HIB Vaccines Aged Out No longer [...] patient[place] [id number] [facility] [address] [place] [address] Care Teams Cinder Snapper Relationship Specialty Start Date End Date Martinez Patiño MD [address] [facility] [address] [place] PCP - General 08/06/19
--- NOTE | 2025-03-18 11:51 | P.CONAN_ITS ---
Documented by User: Gilma Monsalve NP 03/27/25 10:30 HPI - Anesthesia Eval Consult details Narrative: 54yo F for Colonoscopy, 05/04/25 SVT s/p RFA 2021 s/p splenectomy and pacreatectomy d/t cyst 2013 [facility] Active Problems Active Problems: All Active Problems Multinodular thyroid (Acute) Septation of gallbladder (Acute) Anxiety (Acute) Vitamin D deficiency (Acute) Liver cyst (Acute) Cyst of pancreas (Acute) Elevated bilirubin (Acute) Nodule of neck (Acute) Thyroid nodule (Acute) Urolithiasis (Acute) Hyperbilirubinemia (Acute) Overweight (BMI 25.0-29.9) (Acute) Annual physical exam (Acute) SVT (supraventricular tachycardia) (Acute) Cough (Acute) Asthma (Acute) Past Medical History Medical History Vitamin D deficiency Urolithiasis Hyperbilirubinemia Overweight (BMI 25.0-29.9) SVT (supraventricular tachycardia) Asthma Surgical History Surgical History History of colonoscopy (~05/16/19) History of cardiac radiofrequency ablation (~06/2021) History of superficial keratectomy (~04/2017) History of splenectomy (~11/2013) History of pancreatectomy (~11/2013) H/O section Social History Social History Housing: House Alcohol intake: current Alcohol intake frequency: 3 or more drinks per day Patient Tobacco Use Status: Former Tobacco user e-Cigarette/Vaping Use: Never Used Second Hand Smoke Exposure: Yes Advance Directives: No Advance Directives Information Provided: Yes service: No Current occupational status: employed 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 Cognitive needs: No Hearing needs: No Vision needs: Yes Meds Allergies Allergy/AdvReac Type Severity Reaction Status Date / Time No Known Allergies (No Known Allergy Verified 05/04/25 08:34 Allergies*) Home Medications ?Medication ?Instructions ?Recorded ?Confirmed ?Last Taken ?Type No Known Home Meds 05/04/25 05/04/25 Un known History Assessment and Plan Assessment Anesthesia Assessment: Chart Reviewed Documented by User: Edwin Bull MD 05/04/25 09:06 [facility] Past Medical History Medical History Vitamin D deficiency Urolithiasis Hyperbilirubinemia Overweight (BMI 25.0-29.9) SVT (supraventricular tachycardia) Asthma Family History Family history of problems with anesthesia: No Surgical History Surgical History History of colonoscopy (~05/16/19) History of cardiac radiofrequency ablation (~06/2021) History of superficial keratectomy (~04/2017) History of splenectomy (~11/2013) History of pancreatectomy (~11/2013) H/O section History of Problems with Anesthesia: No Social History Social History Housing: House Alcohol intake: current Alcohol intake frequency: 3 or more drinks per day Patient Tobacco Use Status: Former Tobacco user e-Cigarette/Vaping Use: Never Used Second Hand Smoke Exposure: Yes Advance Directives: No Advance Directives Information Provided: Yes service: No Current occupational status: employed 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 Cognitive needs: No Hearing needs: No Vision needs: Yes Meds Allergies Allergy/AdvReac Type Severity Reaction Status Date / Time No Known Allergies (No Known Allergy Verified 05/04/25 08:34 Allergies*) Home Medications ?Medication ?Instructions ?Recorded ?Confirmed ?Last Taken ?Type No Known Home Meds 05/04/25 05/04/25 Un known History Exam Airway Mallampati Class: III TM Dist: >3cm Neck ROM: Full Loose/Missing/Broken Teeth: No Heart: RRR Lungs: CTA Assessment and Plan Assessment Anesthesia Assessment: Anesthesia Plan Discussed Final Anesthetic Review Family History of Problems with Anesthesia: No History of Problems with Anesthesia: No NPO: Yes ASA Class: II Final Preanesthetic Review: No Changes in Pt Med Stat, Meds/Allgs Chart Reviewed, Consent Obtained/Reviewed and Anes Risks/Benef Reviewed Patient Risk: Low Procedure Risk: Low Anesthetic Plan Anesthetic Plan: TIVA Disposition: Standard PACU
[2025-03-18 12:25] VITALS: BMI 29.0
--- NOTE | 2025-05-04 07:37 | MHC.SHP ---
Pre-Procedural Eval Section A - 24 Hr Update-Section A only Date of Service: 05/04/25 The patient is an INPATIENT: No The patient has been examined within 24 hours of the surgical procedure. The History & Physical has been completed within 30 days and I have reviewed it.: No Section B - Complete if H&P > 30 days Chief Complaint: Surveillance for colon polyps Relevant Family History (Specify if Yes): Yes Relevant Social History: Tobacco Use (Former smoker) Present Medications: see Short Stay Collaborative assessment Medical History: Significant History (Vitamin D deficiency Urolithiasis Hyperbilirubinemia Overweight (BMI 25.0-29.9) SVT (supraventricular tachycardia) Asthma) History of Previous Operations: Relevant previous surgery/procedure and date(s) (History of colonoscopy (~05/16/19) History of cardiac radiofrequency ablation (~06/2021) History of superficial keratectomy (~04/2017) History of splenectomy (~11/2013) History of pancreatectomy (~11/2013) H/O section) Allergies: Allergies Allergy/AdvReac Type Severity Reaction Status Date / Time No Known Allergies (No Known Allergy Verified 10/24/24 11:43 Allergies*) Review of Systems Sugical H&P ROS: Negative: Constitution, Cardiovascular, Respiratory and Gastrointestinal Exam Surgical H&P Exam: Normal: Heart, Normal: Lungs, Normal: Extremities and Normal: Abdomen Plan Diagnosis/Plan: Unchanged I have reviewed the history and physical and performed a pertinent physical examination on my patient. No changes have occurred unless specified. Time Spent With Patient Time: Total time managing care of this patient today ____ minutes.
[2025-05-04 09:03] VITALS: BP 143/85; PULSE 85; RESP 18; TEMP 36.7; O2SAT 98
[2025-05-04] MEDS: Lactated Ringers 1,000 ML 100 ML IVCONT (09:03)
[2025-05-04 09:04] VITALS: BMI 30.2
--- NOTE | 2025-05-04 10:09 | HO.OPN-COLON ---
Colonoscopy Operative Note Operative Note Date of Service: 05/04/25 Narrative: COLONOSCOPY TILL CECUM WITH SNARE POLYPECTOMY Pre-op diagnosis: Surveillance for colon polyps, family history of colon polyps Post-op diagnosis:? Colon polyp, Diverticulosis, hemorrhoids Endoscopist:? Case Obrien MD Anesthesia:?MAC Consent: Indications for the procedure and potential complications of bleeding, perforation, reaction to medications and missed diagnosis were discussed with the patient and informed consent was obtained. Instrument: Olympus PCF H 190 L variable stiffness pediatric colonoscope Monitoring: Vital signs and clinical assessment, intermittent blood pressure monitoring, continuous EKG monitoring, Pulse oximetry and Carbon Dioxide monitoring were done throughout the procedure. Please see anesthesia flowsheet. Colon withdrawl time was 13 minutes. Procedure: The patient was placed in the left lateral decubitis position and pre-procedure medications were administered. After a digital rectal examination of the ano-rectum, the video colonoscope was inserted into the rectum and advanced through the colon to the cecum. The colonoscope was slowly withdrawn in a retrograde panoramic fashion and the colon mucosa was carefully examined including a retroflexed view of the rectum. Findings and interventions are described below. Procedure Difficulty: without difficulty Findings: Terminal Ileum: Not evaluated Cecum: Normal Ascending Colon: A 7-8 mm sessile polyp in the mid ascending colon - removed with a cold snare. Moderate diverticulosis scattered throughout the entire colon. Transverse Colon: Moderate diverticulosis scattered throughout the entire colon. Descending Colon: Moderate diverticulosis scattered throughout the entire colon. Sigmoid Colon: Moderate diverticulosis Rectum: Normal Ano-rectum: Normal Colon preparation: Excellent, after some irrigation. Hav[place]and Bowel Preparation Scale Right colon; 3 Transverse colon: 3 Left colon; 3 (0 = Unprepared colon segment with mucosa not seen due to solid stool that cannot be cleared. 1 = Portion of mucosa of the colon segment seen, but other areas of the colon segment not well seen due to staining, residual stool and/or opaque liquid. 2 = Minor amount of residual staining, small fragments of stool and/or opaque liquid, but mucosa of colon segment seen well. 3 = Entire mucosa of colon segment seen well with no residual staining, small fragments of stool or opaque liquid) Impression and Post Procedure Diagnosis: Colonoscopy Findings: One small polyp was removed Moderate diverticulosis seen in the entire colon Plan: I will send a letter with biopsy results Repeat Colonoscopy in 5 years if polyps are adenomatous and due to family history of colon polyps. Above findings were reviewed with the patient and relevant handouts were given and the discharge area.
[2025-05-04 10:35] VITALS: BP 113/57; PULSE 82; RESP 20; TEMP 36.1; O2SAT 98
[2025-05-04 10:46] VITALS: BP 134/71; PULSE 78; RESP 19; TEMP 36.1; O2SAT 99
== END 2025-05-04 11:21 | disposition home or self-care (01) ==
PROVIDERS: PCP Internal Medicine; Visit Provider Internal Medicine Gastroenterology
PROC: 0DJD8ZZ Inspection of Lower Intestinal Tract, Via Natural or Artificial Opening Endoscopic (ICD-10-PCS; CPT 45378; principal; 2025-05-04 09:30)
DX: Z12.11 Encounter for screening for malignant neoplasm of colon (principal); Z83.719 Family history of colon polyps, unspecified; K64.8 Other hemorrhoids; K57.30 Diverticulosis of large intestine without perforation or abscess without bleeding; D12.2 Benign neoplasm of ascending colon
CPT/HCPCS: 45385; 88305; J2003; J2250; J2704

== ENCOUNTER → 2025-05-04 08:19 | Outpatient (BNV) | payer OTHER, SELFPAY | PROVIDERS: PCP Internal Medicine; Visit Provider Internal Medicine Gastroenterology | DX: Z12.11 Encounter for screening for malignant neoplasm of colon (principal); K63.5 Polyp of colon; K57.90 Diverticulosis of intestine, part unspecified, without perforation or abscess without bleeding | CPT/HCPCS: 45385 ==

== ENCOUNTER 2025-05-25 08:12 | Outpatient (REF) | payer OTHER, SELFPAY ==
--- OUTSIDE RECORDS SUMMARY | 2025-05-25 08:24 | XMS_ITS | Data Portability ---
Author Organization [place] [facility] All[facility] Address [address] [place] [phone] Care Team Providers Care Medicine Man Name Role Phone LIANNE, LISA Primary Care Provider Assessment No assessment [...] Address Organization Details Recorded Time Multinodular goiter 594602914 Active 2023 SARAH BETH SMYTH MD [address] [place] [address], [phone], [facility] - [facility] 4 12:21:34 Thyroid nodule 361625190 Active 2023 SARAH BETH SMYTH MD [address] [place] [address], [phone], [place] [facility] 4 12:21:41 Problem Notes None recorded. Procedures Surgical History Date Name Laterality Status Provider Name and Address Organization Details Recorded Time Removal of spleen total completed SARAH BETH SMYTH MD [address] [place] [address], [phone], [place] [facility] 04/25/2024 12:18:19 Pancreatectomy completed SARAH BETH SMYTH MD [address] [place] [address], [phone], [place] - [facility] 04/25/2024 12:18:26 section completed SARAH BETH SMYTH MD [address] [place] [address], [phone], [place] - [facility] 04/25/2024 12:18:33 Imaging Results None recorded. Procedure [...] Updated DateTime 04/25/2024 167.64 cm 29 kg/m2 30624.83 g Teodora Miller [facility] 04/25/2024 11:01:44 Social History None recorded. Functional Status None recorded. Mental Status None recorded. Family History Nothing Reported. Medical History Condition Response Heart Problems Y Asthma Y Gynecological HistoryNo gynecological history recorded. Obstetrics History GPAL:G 0 P 0 0 0 0 Past Encounters Encounter ID Performer Location Encounter Start Date Encounter Closed Date Diagnosis/Indication Diagnosis SNOMED-CT Code Diagnosis ICD10 Code Diagnosis IMO Codes Diagnosis Note [id number] SARAH BETH SMYTH MD [facility] [address] [phone] 04/25/2024 10:49:18 04/25/2024 11:26:41 Thyroid nodule 307427350 E04.1 53 yo F presents for neck [...] worth rechecking in a year. I did pet counselor her that I would not expect [...] ID Gipson Member ID Guarantor Name 04/25/2024 1 [facility] [id number] Nicole L L Earl [id number] Nicole L Earl Notes Date Note Type Note Provider Name and Address Organization Details Recorded Time 04/25/2024 text/html ROS as noted in the HPI 53 yo F presents for neck swelling, [...] lower thyroid nodule. SARAH BETH SMYTH MD [address] [place] [address],[place] [address], [place], [phone], [facility] - [facility] 04/25/2024 12:26:27 OBGyn Episode No OBEpisode recorded.
--- OUTSIDE RECORDS SUMMARY | 2025-05-25 08:24 | XMS_ITS | Clinical Summary ---
Author Organization [facility] Address [address] [place] [address] Phone Care Team Providers Care Bevel Face Stoner And Polisher Name Role Phone Martinez Patiño MD Primary Care Provider Allergies Active Allergy Reactions Criticality Noted Date Comments Propranolol Other High 04/28/2021 Active Problems Problem Noted Date Diagnosed Date PAC (premature atrial contraction) 08/01/2021 SVT (supraventricular tachycardia) ([facility] V24) 08/01/2021 Overview (06/30/2024): Last Assessment & [...] showed brief episodes of SVT. Most recent patient monitor completed 12/2020 did show 1 episode [...] Care Team (Late st Contact Info) Description 06/05/2025 10:20 AM EST Office Visit [facility] [address] [place] [address] Amos Bolaños MD [address] [place] [address] Dr [place] [phone] Health Maintenance Due Date Last Done Comments Breast Cancer Screening 1968 Colorectal Cancer Screening: Colonoscopy 1968 DTaP,Tdap,and Td Vaccines (1 - Tdap) 10/23/1987 Hepatitis B Vaccines (1 of 3 - 19+ 3-dose series) 10/23/1987 Cervical Cancer Screening: P ap Smear 1989 Pneumococcal Vaccine: 50+ Ye ars (1 of 1 - PCV) 2018 Zoster Vaccines (1 of 2) 2018 HIV Screening 06/03/2022 Hepatitis C Screening 06/03/2022 Social Influencers of Health Screening 06/03/2022 Depression Screening 06/25/2024 COVID-19 Vaccine (1 - 2024-2 6 season) 2025 Influenza Vaccine (#1) 2025 RSV Immunization Adult Patie nts (1 - 1-dose 75+ series) 10/23/2043 HIB Vaccines Aged Out No longer eligi [...] patient's [place] this [place] [id number] [facility] [address] [place] [address] Care Teams Bevel Face Stoner And Polisher Relationship Specialty Start Date End Date Martinez Patiño MD [address] [place], [place] PCP - General 08/06/19
[2025-05-25 08:25] LABS: MANUAL DIFF FLAG NO
[2025-05-25 08:43] LABS: Hematocrit 45.3 % (37.0-47.0); Hemoglobin 15.1 g/dl (12.0-16.0); Imm Gran Abs Auto 0.03 X10*3/uL (0.00-0.03); Imm Gran Pct Auto 0.4 % (0.0-0.4); Lymphocytes Absolute Auto 2.0 X10*3/uL (1.2-4.9); Mean Corpuscular HGB Conc 33.3 g/dl (31.0-35.0); Mean Corpuscular Hemoglobin 31.7 pg (27.0-33.0); Mean Corpuscular Volume 95.0 fL (80.0-98.0); NRBC Abs Auto 0.000 X10*3/uL (0.0-0.012); NRBC Pct Auto 0.0 /100WBC (0.0-0.2); Platelet Count 353 X10*3/uL (160-400); Red Blood Count 4.77 X10*6/uL (4.20-5.50); White Blood Count 8.1 X10*3/uL (4.8-10.8)
[2025-05-25 09:24] LABS: Alanine Aminotransferase 34 U/L (0-31); Albumin Level 4.7 g/dL (3.5-5.0); Alkaline Phosphatase 58 U/L (39-117); Anion Gap 9 (12-20); Aspartate Amino Transferase 32 U/L (5-31); Blood Urea Nitrogen 17 mg/dL (9-16); Calcium 9.6 mg/dL (8.4-10.2); Carbon Dioxide 28 mmol/L (22-29); Chloride 110 mmol/L (96-108); Cholesterol 208 mg/dL (<200); Estimated Glomerular Filt Rate > 60; HDL Cholesterol 83 mg/dL (>40); Potassium 3.9 mmol/L (3.3-5.1); Sodium 143 mmol/L (135-145); Total Protein 7.2 g/dL (6.5-8.0); Triglycerides 50 mg/dL (<150)
[2025-05-25 10:10] LABS: Appearance Urine Cloudy; Glucose Urine UA Negative (Negative); PH 6.5 (5.0-9.0); Specific Gravity - Urine 1.025 (1.005-1.025); UMIC TRIGGER UACC YES
== END 2025-05-25 08:13 | disposition home or self-care (01) ==
LOC: HO.LAB 08:12
PROVIDERS: PCP Internal Medicine; Visit Provider Internal Medicine
DX: Z00.00 Encounter for general adult medical examination without abnormal findings (principal); E04.1 Nontoxic single thyroid nodule; E04.2 Nontoxic multinodular goiter; E80.6 Other disorders of bilirubin metabolism; E66.3 Overweight; D64.9 Anemia, unspecified; E78.00 Pure hypercholesterolemia, unspecified; E55.9 Vitamin D deficiency, unspecified; I47.10 Supraventricular tachycardia, unspecified
CPT/HCPCS: 36415; 80053; 80061; 81001; 81003; 82306; 84443; 85025

== ENCOUNTER 2025-05-26 12:14 | Outpatient (AMB) | payer OTHER, SELFPAY ==
[2025-05-26 12:33] VITALS: BP 120/84; PULSE 81; O2SAT 96; BMI 28.7
--- NOTE | 2025-05-26 12:33 | A.OFFPC_ITS ---
Vital Signs 05/26/25 12:33 Height 5 ft 6 in Weight 178 lb 2 oz BMI 28.7 BP 120/84 Blood Pressure Location Lt brachial Position Sitting Pulse 81 Pulse Source Pulse Oximeter Pulse Oximetry (%) 96 Oxygen Delivery Method Room Air Intake Visit Reasons: Annual Exam - see comments Traffic Signal Mechanic Required: No Accompanied by: Self / Same As Patient Allergies No Known Allergies (No Known Allergies*) Allergy (Verified 05/26/25 12:53) Medication List - Last Reconciled 05/26/25 by Martinez Patiño MD No Known Home Meds Tobacco use date assessed: 05/26/25 Dental Screening Dental Screen Date: 05/26/25 Did you have a dental visit in the last 12 months?: Yes Did you have a dental problem in the last 6 months where you did not have access to dental care?: No Was dental information given to patient?: Patient has dentist HPI Annual Exam - see comments HPI Details Patient comes in today for her annual physical examination States that she feels okay She denies any headaches or dizziness Denies any chest pains, no SOB No nausea/vomiting, no abdominal pain No change in bowel habits noted She denies any acute urinary symptoms She had her follow up labs done yesterday - to discuss her results Patient had her repeat colonoscopy done with Dr. Obrien last month on 05/04/2025 - she had a polyp removed that was a tubular adenoma on pathology and will need repeat colonoscopy in 5 years (2029) She is due for her annual mammogram and states that she will reach out to [facility] and get this scheduled and done [place] She is also due for her yearly gynecology exam and pap smear and will call up her planer hand's office to schedule her appointment as soon as possible She is scheduled for repeat renal US and urology follow up with Dr. Greene early next month and will also be seeing endocrinology for follow up of her thyroid nodules next month as well [facility] Medical History Vitamin D deficiency Urolithiasis Hyperbilirubinemia Overweight (BMI 25.0-29.9) SVT (supraventricular tachycardia) Asthma Surgical History (Updated 05/26/25 @ 13:21 by Martinez Patiño MD) History of colonoscopy (~05/16/19) History of cardiac radiofrequency ablation (~06/2021) History of superficial keratectomy (~04/2017) History of splenectomy (~11/2013) History of pancreatectomy (~11/2013) H/O section Social History Housing: House Are you a primary care navigator to a significant other at home: No Do you presently have visiting nurse or other home services: No Alcohol intake: current Alcohol intake frequency: 3 or more drinks per day Patient Tobacco Use Status: Former Tobacco user e-Cigarette/Vaping Use: Never Used Second Hand Smoke Exposure: Yes service: No Current occupational status: employed 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 1. Little interest or pleasure in doing things: not at all 2. Feeling down, depressed, or hopeless: not at all 3. Trouble falling or staying asleep, or sleeping too much: not at all 4. Feeling tired or having little energy: not at all 5. Poor appetite or overeating: not at all 6. Feeling bad about yourself - or that you are a failure or have let yourself or your family down: not at all 7. Trouble concentrating on things, such as reading the newspaper or watching television: not at all 8. Moving or speaking so slowly that other people could have noticed. Or the opposite - being so fidgety or restless that you have been moving around a lot more than usual: not at all 9. Thoughts that you would be better off or of hurting yourself in some way: not at all Total score: 0 Source: Developed by Drs. Santosh Colunga, Kya Martínez, Dario Barrios and colleagues, with an educational alyssa from [employer]. Thrive Questionnaire Date Thrive assessed: 05/26/25 I am a: Patient What is your living situation today?: I have a steady place to live Within the past 12 months, did the food you bought not last and you didn't have the money to get more?: Never true Within the past 12 months, did you worry whether your food would run out before you got money to buy more?: Never true Do you have trouble paying for medicines?: No Do you have trouble getting transportation to medical appointments?: No Do you have trouble paying your heating and electricity bill?: No Do you have trouble taking care of your child, family member or friend?: No Do you have trouble with day-to-day activities such as bathing, preparing meals, shopping, managing finances, etc.?: No Are you currently unemployed and looking for a job?: No Are you interested in more education?: No Please select the resources that you would like help with: None Currently or been in a relationship where the following occur: No concerns reported THRIVE Score: 0 AUDIT C Alcohol Use Questionnaire (AUDIT-C) 1. How often do you have a drink containing alcohol?: 4 or more times a week 2. How many drinks containing alcohol do you have on a typical day when you are drinking?: 1 or 2 3. How often do you have six or more drinks on one occasion?: Never Total Score: 4 DAVION-7 AMB Questionnaire DAVION-7 Date DAVION - 7 assessed: 05/26/25 Feeling nervous, anxious, or on edge: 0 = Not at all Not being able to stop or control worryin = Not at all Worrying too much about different things: 0 = Not at all Trouble relaxin = Not at all Being so restless that it is hard to sit still: 0 = Not at all Becoming easily annoyed or irritable: 0 = Not at all Feeling afraid as if something awful might happen: 0 = Not at all Total DAVION-7 score (0-4 normal; 5-9 mild; 10-14 moderate; 15-21 severe): 0 Source: Developed by Drs. Santosh Colunga, Kya Martínez, Dario Barrios and colleagues, with an educational alyssa from [employer]. DAVION-7 Assessment Billing DAVION-7 Assessment Tool: DAVION-7 Assessment 34255 Physical exam (Primary Care) Vital Signs: Last Vital Signs Pulse 81 05/26/25 12:33 BP 120/84 05/26/25 12:33 Pulse Ox 96 05/26/25 12:33 Oxygen Delivery Method Room Air 05/26/25 12:33 BMI result Body Mass Index 28.7 Tobacco/Smoking Status: Tobacco use Status Tobacco use date assessed 05/26/25 05/26/25 12:37 Patient Tobacco Use Status Former Tobacco user 05/26/25 12:37 e-Cigarette/Vaping Use Never Used 05/26/25 12:37 PHQ-9: PHQ-9 Score PHQ-9: Total score 0 05/26/25 13:15 Thrive Assessment: Date of Thrive Assessment Date Thrive assessed 05/26/25 05/26/25 12:37 Currently or been in a relationship where the following occur: No concerns reported Office Procedures Flu Questionnaire Does the patient have a severe egg allergy?: No Does the patient have severe life threatening allergies?: No Does the patient have a fever or illness today?: No Has the patient ever had Guillain-Shawnee Syndrome?: No Has the patient ever had any past reaction to a flu shot?: No Immunizations Fluarix 4012-3098 (PF) 45 mcg (15 mcg x 3)/0.5 mL IM syringe Performing Provider: Martinez Patiño MD [facility] Administered by: CRISTOFER Helms on 05/26/25 13:21 Dose Route Admin Location Dispensed Lot Number Expiration Date NDC Theology Teacher 0.5 mL IM Left Deltoid 0.5 mL [id number] 12/22/25 92302-127-99 [employer] VIS Given Date VIS Provided VIS Publication Date 05/26/25 Single Vaccine 24 Eligibility Eligibility Date Funding Source Not [facility] Eligible 05/26/25 Private Coding Diagnoses Annual physical exam Z00.00 Additional Codes DAVION-7 Assessment Billing - DAVION-7 Assessment Tool: DAVION-7 Assessment 54246 ([id number]) Assessment & Plan Assessment & Plan (1) Annual physical exam: Code(s): Z00.00 - Encounter for general adult medical examination without abnormal findings Category: Medical Orders: Orders Comprehensive [place]. Panel Fast 1 Year E78.00 - Pure hypercholesterolemia, unspecified, Z00.00 - Encounter for general adult medical examination without abnormal findings Lipid Panel 1 Year E78.00 - Pure hypercholesterolemia, unspecified, Z00.00 - Encounter for general adult medical examination without abnormal findings TSH reflex Free T4 1 Year E78.00 - Pure hypercholesterolemia, unspecified, Z00.00 - Encounter for general adult medical examination without abnormal findings UA CC w/rflx Micro + Cult 1 Year R30.0 - Dysuria, Z00.00 - Encounter for general adult medical examination without abnormal findings Influenza [id number] Immunization Today Z23 - Encounter for immunization Complete Blood Count Auto Diff 1 Year D64.9 - Anemia, unspecified, Z00.00 - Encounter for general adult medical examination without abnormal findings Hemoglobin A1c 1 Year E11.9 - Type 2 diabetes mellitus without complications, Z00.00 - Encounter for general adult medical examination without abnormal findings Vitamin D 25-OH Total 1 Year E55.9 - Vitamin D deficiency, unspecified, Z00.00 - Encounter for general adult medical examination without abnormal findings Urine Cytology 1 Year R31.1 - Benign essential microscopic hematuria, Z00.00 - Encounter for general adult medical examination without abnormal findings
--- OUTSIDE RECORDS SUMMARY | 2025-05-26 14:18 | XMS_ITS | Data Portability ---
Author Organization [place] - [facility], Allergy Address [address] [place] [phone] Care Team Providers Care Wirer Name Role Phone LIANNE, LISA Primary Care [...] Address Organization Details Recorded Time Multinodular goiter 559978126 Active 2023 SARAH BETH SMYTH MD [address] [place] [address], [phone], [facility] - [facility] 4 12:21:34 Thyroid nodule 782723362 Active 2023 SARAH BETH SMYTH MD [address] [place] [address], [phone], [place] [facility] 4 12:21:41 Problem Notes None recorded. Procedures Surgical History Date Name Laterality Status Provider Name and Address Organization Details Recorded Time Removal of spleen total completed SARAH BETH SMYTH MD [address] [place] [address], [phone], [place] [facility] 04/25/2024 12:18:19 Pancreatectomy completed SARAH BETH SMYTH MD [address] [place] [address], [phone], [place] - [facility] 04/25/2024 12:18:26 section completed SARAH BETH SMYTH MD [address] [place] [address], [phone], [place] - [facility] 04/25/2024 12:18:33 Imaging Results None recorded. Procedure [...] Updated DateTime 04/25/2024 167.64 cm 29 kg/m2 28687.83 g Teodora Miller [facility] 04/25/2024 11:01:44 Social History None recorded. Functional [...] ICD10 Code Diagnosis IMO Codes Diagnosis Note [id number] SARAH BETH SMYTH MD [facility] [address] [phone] 04/25/2024 10:49:18 04/25/2024 11:26:41 Thyroid nodule 208820062 E04.1 53 yo F presents for neck [...] worth rechecking in a year. I did awake overnight counselor her that I would not expect [...] Gipson Member ID Guarantor Name 04/25/2024 1 [facility] [id number] Nicole L L Earl [id number] Nicole L Earl Notes Date Note Type [...] lower thyroid nodule. SARAH BETH SMYTH MD [address] [place] [address],[place] [address], [place], [phone], [facility] - [facility] 04/25/2024 12:26:27 OBGyn Episode No OBEpisode recorded.
--- OUTSIDE RECORDS SUMMARY | 2025-05-26 14:18 | XMS_ITS | Clinical Summary ---
Author Organization [facility] Address [address] [place] [address] Phone Care Team Providers Care Turbo Electric Operator Name Role Phone Martinez Patiño MD Primary Care Provider Allergies Active Allergy Reactions Criticality Noted Date Comments Propranolol Other High 04/28/2021 Active Problems Problem Noted Date Diagnosed Date PAC (premature atrial contraction) 08/01/2021 SVT (supraventricular tachycardia) ([facility] V24) 08/01/2021 Overview (06/30/2024): Last [...] showed brief episodes of SVT. Most recent finishing technician completed 12/2020 did show 1 episode of [...] Description 06/05/2025 10:20 AM EST Office Visit [facility] [address] [facility] [address] [place] [address] Amos Bolaños MD [address] [place] [address] Dr MichelleFIELDKHADAR [phone] Health Maintenance Due Date Last Done Comments [...] [id number] [facility] [address] [place] [address] Care Teams Turbo Electric Operator Relationship Specialty Start Date End Date Martinez Patiño MD [address] [place], [place] PCP - General 08/06/19
== END 2025-05-26 13:18 | disposition home or self-care (01) ==
LOC: HO.HMCH 12:15
PROVIDERS: PCP Internal Medicine; Visit Provider Internal Medicine
DX: Z23 Encounter for immunization (principal)

== ENCOUNTER → 2025-05-26 12:14 | Outpatient (BNVA) | payer OTHER, SELFPAY | PROVIDERS: PCP Internal Medicine; Visit Provider Internal Medicine | DX: Z00.00 Encounter for general adult medical examination without abnormal findings (principal); I47.10 Supraventricular tachycardia, unspecified; E80.6 Other disorders of bilirubin metabolism; J45.20 Mild intermittent asthma, uncomplicated; E04.1 Nontoxic single thyroid nodule; E55.9 Vitamin D deficiency, unspecified; F41.9 Anxiety disorder, unspecified; E66.3 Overweight; Z23 Encounter for immunization; Z68.28 Body mass index [BMI] 28.0-28.9, adult | CPT/HCPCS: 90471; 90656; 96127 ==